=== PATIENT | female | born 1975 | race Caucasian/White ===

== ENCOUNTER → 2016-12-02 | Outpatient (CLI) | payer BC ==
[~2016-12-02] MED LIST: CEPH500C2 PO; INSPMPHMLG; LEVO75TA5 PO; NORGTAB39 PO; OXYC-57 PO; PRENTAB26 PO
== END | disposition home or self-care (01) ==
LOC: C.PAPS 12:15
PROVIDERS: ATTEND Obstetrics & Gynecology
DX: Z01.419 Encounter for gynecological examination (general) (routine) without abnormal findings (principal)

== ENCOUNTER → 2016-12-31 | Outpatient (CLI) | payer BC | END | disposition home or self-care (01) | LOC: C.LAB1850 16:19 | PROVIDERS: ATTEND Obstetrics & Gynecology | DX: F32.81 Premenstrual dysphoric disorder (principal) ==

== ENCOUNTER → 2017-01-01 | Outpatient (CLI) | payer BC | END | disposition home or self-care (01) | LOC: C.LAB1850 09:57 | PROVIDERS: ATTEND Obstetrics & Gynecology | DX: Z32.01 Encounter for pregnancy test, result positive (principal) ==

== ENCOUNTER → 2017-01-27 | Outpatient (CLI) | payer BC ==
[2017-01-27 09:55] LABS: ALT/SGPT 118 U/L (12-78); BLOOD UREA NITROGEN 13 mg/dl (7-18); BUN/CREATININE RATIO 21.7 (10-20); CALCIUM 9.1 mg/dl (8.5-10.1); CARBON DIOXIDE 26 mmol/L (21-32); CHLORIDE 104 mmol/L (98-107); GLUCOSE 154 mg/dl (70-99); POTASSIUM 4.2 mmol/L (3.5-5.1); SODIUM 139 mmol/L (136-145)
[2017-01-27 10:05] LABS: ALB/GLOB RATIO 1.3 (0.9-2); ALKALINE PHOSPHATASE 144 U/L (45-117); AST/SGOT 56 U/L (15-37); THYROID STIMULATING HORMONE 0.935 uIu/ml (0.300-4.500)
[2017-01-27 10:19] LABS: ESTIMATED AVERAGE GLUCOSE 174 mg/dl; HA1C FLAG Normal (Normal)
[2017-01-27 14:06] LABS: URINE APPEARANCE CLEAR (CLEAR); URINE BILIRUBIN NEG (NEG); URINE COLOR YELLOW; URINE NITRITE NEG (NEG); URINE PH 7.5 (4.5-7.5); URINE SPECIFIC GRAVITY 1.009 (1.000-1.030); UROBILINOGEN NEG (NEG)
[2017-01-27 14:13] LABS: MANUAL MICROSCOPIC REQUIRED? NO; REVIEW REQ? NO
== END | disposition home or self-care (01) ==
LOC: C.LAB1850 08:22
PROVIDERS: ATTEND Internal Medicine Endocrinology, Diabetes & Metabolism
DX: O09.519 Supervision of elderly primigravida, unspecified trimester (principal); E55.9 Vitamin D deficiency, unspecified; E10.29 Type 1 diabetes mellitus with other diabetic kidney complication

== ENCOUNTER → 2017-01-29 | Outpatient (CLI) | payer BC ==
[2017-01-29 17:11] LABS: BASO % 0.5 %; BASO ABS # 0.06 K/uL (0-0.2); COMPLETE YES; EOS % 1.2 %; HEMATOCRIT 40.3 % (37-47); IG% 0.5 %; LYMPH % 24.5 %; LYMPH ABS # 2.68 K/uL (1.2-3.4); MEAN CELL VOLUME 88.6 fL (80-100); MEAN CORPUSCULAR HEMOGLOBIN 32.3 pg (25-34); MEAN CORPUSCULAR HGB CONC 36.5 g/dl (32-36); MEAN PLATELET VOLUME 10.7 fL (7.4-10.4); MONO % 7.3 %; PLATELET COUNT 273 K/uL (130-400); RED BLOOD COUNT 4.55 M/uL (4.2-5.4); WHITE BLOOD COUNT 10.96 K/uL (4.8-10.8)
[2017-02-02 17:26] LABS: EBV EARLY ANTIGEN AB <0.91 INDEX; EPSTEIN BARR VIR CAPSID IGG 4.13 INDEX
== END | disposition home or self-care (01) ==
LOC: C.LABBFT 14:27
PROVIDERS: ATTEND Physician Assistant Medical
DX: R74.8 Abnormal levels of other serum enzymes (principal)

== ENCOUNTER → 2017-02-02 | Outpatient (CLI) | payer BC ==
[2017-02-05 01:35] LABS: CHLAMYDIA TRACH RNA*** NOT DETECTED (NOT DETECTED); GC (NEIS GONORRHOEAE)RNA** NOT DETECTED (NOT DETECTED)
== END | disposition home or self-care (01) ==
LOC: C.LABSPEC 17:59
PROVIDERS: ATTEND Obstetrics & Gynecology
DX: O09.519 Supervision of elderly primigravida, unspecified trimester (principal); Z3A.00 Weeks of gestation of pregnancy not specified

== ENCOUNTER → 2017-02-02 | Outpatient (CLI) | payer BC ==
[2017-02-02 17:42] LABS: BASO % 0.4 %; BASO ABS # 0.05 K/uL (0-0.2); COMPLETE YES; EOS % 1.2 %; HEMATOCRIT 38.1 % (37-47); IG% 0.6 %; LYMPH % 23.3 %; MEAN CELL VOLUME 87.6 fL (80-100); MEAN CORPUSCULAR HEMOGLOBIN 32.9 pg (25-34); MEAN CORPUSCULAR HGB CONC 37.5 g/dl (32-36); MEAN PLATELET VOLUME 11.1 fL (7.4-10.4); MONO % 7.6 %; NEUT % 66.9 %; PLATELET COUNT 244 K/uL (130-400); RED BLOOD COUNT 4.35 M/uL (4.2-5.4); WHITE BLOOD COUNT 11.61 K/uL (4.8-10.8)
== END | disposition home or self-care (01) ==
LOC: C.LAB1850 16:10
PROVIDERS: ATTEND Obstetrics & Gynecology
DX: O09.519 Supervision of elderly primigravida, unspecified trimester (principal); Z3A.00 Weeks of gestation of pregnancy not specified

== ENCOUNTER → 2017-02-11 | Outpatient (CLI) | payer BC ==
[2017-02-16 15:50] LABS: IGA SERUM 124 mg/dL (81-463); TIS TRANS IGA 1 U/mL (<4)
== END | disposition home or self-care (01) ==
LOC: C.LAB1850 15:46
PROVIDERS: ATTEND Nurse Practitioner Family
DX: O26.891 Other specified pregnancy related conditions, first trimester (principal); R74.8 Abnormal levels of other serum enzymes; Z3A.10 10 weeks gestation of pregnancy

== ENCOUNTER → 2017-02-15 | Outpatient (CLI) | payer BC ==
--- NOTE | 2017-02-15 10:03 | DIAGNOSTIC IMAGING REPORT ---
ABDOMINAL ULTRASOUND, RIGHT UPPER QUADRANT HISTORY: ELEVATED LIVER ENZYMES. COMPARISON: Abdominal ultrasound 12/12/2012. FINDINGS: Pancreas: The pancreas demonstrates a normal echotexture. Liver: Mildly enlarged measuring 20 cm in length. Normal echotexture. Gallbladder: No gallbladder wall thickening. No gallstones. There again noted 2 small polyps identified within largest measuring 4 mm. These remain unchanged. CBD: 3 mm. Right kidney: No hydronephrosis. IMPRESSION: 1. Mild hepatomegaly. 2. Stable subcentimeter gallbladder polyps. Electronically signed by: Jorden Saini M.D. 02/15/2017 10:01 AM Dictated Date/Time: 02/15/2017 10:00 AM
== END | disposition home or self-care (01) ==
LOC: C.ULTR 09:04
PROVIDERS: ATTEND Nurse Practitioner Family
DX: R74.8 Abnormal levels of other serum enzymes (principal); K82.4 Cholesterolosis of gallbladder; Z33.1 Pregnant state, incidental; Z3A.10 10 weeks gestation of pregnancy

== ENCOUNTER → 2017-02-17 | Outpatient (CLI) | payer BC ==
[2017-02-20 18:36] LABS: ALBUMIN 4.4 G/DL (3.8-4.8); ALPHA-1-ANTITRYPSIN TC 67710E 143 MG/DL (83-199); GAMMA GLOBULIN 0.8 G/DL (0.8-1.7); IMMUNOFIXATION IGA SERUM 121 MG/DL (81-463); IMMUNOFIXATION IGG SERUM 831 MG/DL (694-1618); IMMUNOFIXATION IGM SERUM 78 MG/DL (48-271); PARVOVIRUS IgG INDEX 0.2 (<0.9); PARVOVIRUS IgM INDEX 0.2 (<0.9); TOTAL PROTEIN 6.8 G/DL (6.2-8.3)
== END | disposition home or self-care (01) ==
LOC: C.LAB1850 13:44
PROVIDERS: ATTEND Nurse Practitioner Family
DX: R79.89 Other specified abnormal findings of blood chemistry (principal)

== ENCOUNTER → 2017-02-21 | Outpatient (CLI) | payer BC ==
[2017-02-22 15:56] LABS: PATIENT HEIGHT 162.6 cm
[2017-02-22 16:26] LABS: URINE TOTAL PROTEIN 6.9 mg/dl (0-11.9)
[2017-02-22 22:30] LABS: URINE TOTAL PROTEIN CALC 234.6 mg/24 hr (0-149.1)
[2017-02-22 22:31] LABS: CREATININE 0.66 mg/dl (0.6-1.2)
== END | disposition home or self-care (01) ==
LOC: C.LAB1850 20:00
PROVIDERS: ATTEND Obstetrics & Gynecology
DX: O24.011 Pre-existing type 1 diabetes mellitus, in pregnancy, first trimester (principal); E10.29 Type 1 diabetes mellitus with other diabetic kidney complication

== ENCOUNTER → 2017-03-02 | Outpatient (CLI) | payer BC ==
[2017-03-03 11:51] LABS: MANUAL MICROSCOPIC REQUIRED? YES; URINE APPEARANCE CLEAR (CLEAR); URINE BILIRUBIN NEG (NEG); URINE COLOR YELLOW; URINE NITRITE NEG (NEG); URINE SPECIFIC GRAVITY <= 1.005 (1.000-1.030); UROBILINOGEN NEG (NEG)
[2017-03-03 11:52] LABS: REVIEW REQ? NO
[2017-03-03 11:56] LABS: URINE BACTERIA NEG (NEG); URINE RBC 0-4 /hpf (0-4)
== END | disposition home or self-care (01) ==
LOC: C.LABSPEC 11:04
PROVIDERS: ATTEND Obstetrics & Gynecology
DX: O09.511 Supervision of elderly primigravida, first trimester (principal); Z3A.00 Weeks of gestation of pregnancy not specified

== ENCOUNTER → 2017-03-30 | Outpatient (CLI) | payer BC ==
[2017-04-01 14:55] LABS: AFP CONCENTRATION 25.8 NG/ML; AFP MULTIPLE OF MEDIAN 0.83; AFPTS GESTATIONAL AGE 16.9 WEEKS; AFPTS INSULIN DEP DIABETIC? YES; AFPTS MATERNAL WT 162 LBS; ALPHA-FETOPROTEIN RACE CAUCASIAN=W; HISTORY OF NTD NO; REPEAT SAMPLE? NO
== END | disposition home or self-care (01) ==
LOC: C.LAB1850 16:41
PROVIDERS: ATTEND Obstetrics & Gynecology
DX: O09.512 Supervision of elderly primigravida, second trimester (principal); Z3A.00 Weeks of gestation of pregnancy not specified

== ENCOUNTER → 2017-06-16 | Outpatient (CLI) | payer BC ==
[2017-06-16 13:09] LABS: HEMATOCRIT 37.8 % (37-47)
[2017-06-16 14:10] LABS: URINE APPEARANCE CLEAR (CLEAR); URINE BILIRUBIN NEG (NEG); URINE COLOR YELLOW; URINE NITRITE NEG (NEG); URINE PH 6.5 (4.5-7.5); URINE SPECIFIC GRAVITY 1.008 (1.000-1.030); UROBILINOGEN NEG (NEG)
[2017-06-16 14:18] LABS: MANUAL MICROSCOPIC REQUIRED? NO; REVIEW REQ? NO
== END | disposition home or self-care (01) ==
LOC: C.LAB1850 11:51
PROVIDERS: ATTEND Obstetrics & Gynecology
DX: O09.512 Supervision of elderly primigravida, second trimester (principal)

== ENCOUNTER 2017-08-06 18:14 | Outpatient (CLI) | payer BC ==
[~2017-08-06 18:14] MED LIST changes: -CEPH500C2 PO; -LEVO75TA5 PO; -OXYC-57 PO; -PRENTAB26 PO
== END 2017-08-06 18:15 | disposition home or self-care (01) ==
LOC: C.OPB 18:14 → C.LD 18:14 → C.OPB 18:15
PROVIDERS: ATTEND Obstetrics & Gynecology
DX: O24.019 Pre-existing type 1 diabetes mellitus, in pregnancy, unspecified trimester (principal); Z3A.00 Weeks of gestation of pregnancy not specified

== ENCOUNTER → 2017-08-09 | Outpatient (CLI) | payer BC ==
[~2017-08-09] MED LIST changes: +CEPH500C2 PO; +LEVO75TA5 PO; +OXYC-57 PO; +PRENTAB26 PO
== END | disposition home or self-care (01) ==
LOC: C.LABSPEC 09:33
PROVIDERS: ATTEND Obstetrics & Gynecology
DX: O09.93 Supervision of high risk pregnancy, unspecified, third trimester (principal)

== ENCOUNTER 2017-08-17 21:15 | Inpatient (IN) | payer BC ==
[~2017-08-17] VITALS: Ht 162.6 cm; Wt 85.5 kg
[~2017-08-17 21:15] MED LIST changes: -CEPH500C2 PO; -LEVO75TA5 PO; -OXYC-57 PO; -PRENTAB26 PO
[2017-08-17 21:31] VITALS: Ht 162.6 cm; Wt 85.5 kg
[2017-08-17] MEDS ORDERED: PRENTAB26 PO (21:31)
[2017-08-17] MEDS ORDERED: LEVO75TA5 PO (21:31)
[2017-08-17] MEDS ORDERED: DEXTROSE 5% 1000ML 1,000 ML IV SCH (22:17)
[2017-08-17] MEDS ORDERED: SODIUM CHLORIDE 0.9% 1000ML 1,000 ML IV SCH (22:17)
[2017-08-17] MEDS ORDERED: DEXTROSE 50% 50 ML SYR IV PRN (22:30)
[2017-08-17] MEDS ORDERED: INSULIN REGULAR 250 UNITS in SODIUM CHLORIDE 0.9% 250ML 250 ML IV SCH (22:30)
[2017-08-17 23:00] LABS: MEAN CELL VOLUME 87.6 fL (80-100); MEAN CORPUSCULAR HEMOGLOBIN 32.6 pg (25-34); MEAN CORPUSCULAR HGB CONC 37.2 g/dl (32-36); MEAN PLATELET VOLUME 12.3 fL (7.4-10.4); PLATELET COUNT 214 K/uL (130-400); RED BLOOD COUNT 4.45 M/uL (4.2-5.4); WHITE BLOOD COUNT 14.44 K/uL (4.8-10.8)
[2017-08-17 23:27] LABS: ALB/GLOB RATIO 0.7 (0.9-2); CALCIUM 8.6 mg/dl (8.5-10.1); CREATININE 0.91 mg/dl (0.60-1.20); POTASSIUM 3.9 mmol/L (3.5-5.1)
[2017-08-17] MEDS ORDERED: LACTATED RINGER'S 1000ML 1,000 ML IV PRN (23:38)
[2017-08-17] MEDS ORDERED: LACTATED RINGER'S 1000ML 500 ML IV PRN (23:39)
[2017-08-17] MEDS ORDERED: OXYTOCIN 30 UNITS/500ML NSS IV PRN (23:45)
[2017-08-18] MEDS: LACTATED RINGER'S 1000ML 1,000 ML IV SCH ×3 (00:29→13:55)
[2017-08-18] MEDS ORDERED: NURSING VERBAL MED ORDER ONE (02:30)
[2017-08-18] MEDS: BUTORPHANOL TARTRATE 1 MG/ML VIAL IV PRN ×2 (02:31→04:07)
[2017-08-18] MEDS ORDERED: FENTANYL CITRATE INJ 50 MCG/1 ML 2 ML VIAL ONE ×4 (05:12→18:24)
[2017-08-18] MEDS ORDERED: EpHEDrine SULFATE INJ 50 MG/ML AMP ONE (05:12)
[2017-08-18] MEDS ORDERED: FENTANYL 2MCG/ML ROPIV 1.25MG/ML 100ML BAG EPI ONE (05:12)
[2017-08-18] MEDS ORDERED: BUPIVACAINE 0.25% 30 ML VIAL ONE ×2 (05:12→14:11)
[2017-08-18] MEDS ORDERED: LACTATED RINGER'S 1000ML 500 ML IV PRN (05:13)
[2017-08-18] MEDS ORDERED: NALOXONE HCL INJ 1 MG in SODIUM CHLORIDE 0.9% 1000ML 1,000 ML IV PRN (05:13)
[2017-08-18] MEDS ORDERED: NALOXONE HCL INJ 0.4 MG/1 ML VIAL/CARP IV PRN (05:15)
[2017-08-18] MEDS ORDERED: ONDANSETRON INJ 2 MG/ML 2 ML VIAL IV PRN (05:15)
[2017-08-18] MEDS ORDERED: EpHEDrine SULFATE INJ 50 MG/ML AMP IV PRN ×2 (05:15→19:30)
[2017-08-18] MEDS ORDERED: DiphenhydrAMINE HCL 50 MG/ML VIAL IV PRN (05:15)
[2017-08-18] MEDS ORDERED: NALBUPHINE HCL INJ 10 MG/ML AMP IV PRN (05:15)
[2017-08-18] MEDS: FENTANYL 2MCG/ML ROPIV 1.25MG/ML 100ML BAG EPI PRN ×3 (07:07→13:37)
[2017-08-18] MEDS: INSULIN REGULAR 250 UNITS in SODIUM CHLORIDE 0.9% 250ML 250 ML IV SCH ×4 (11:34→14:40)
--- NOTE | 2017-08-18 14:28 | Anesthesiology Progress Note ---
Post OP Pain Management Date & Time of Service Aug 18, 2017 at 14:26 Subjective Therapies: Epidural/IV Drugs, Marcaine, Fentanyl pain is 10/10 Objective Cathether Site: examined, palpated, intact, dry, non-tender, without erythma, without exudate Assessment & Plan Plan: at 1424 pt epidural was bolused with 12 ml 0.17% bupivacaine + 100 mcgs Fentanyl ;negative aspiration;vital signs stable
[2017-08-18] MEDS ORDERED: CITRIC ACID/SODIUM CITRATE 15 ML UDC ONE (16:52)
[2017-08-18] MEDS ORDERED: LACTATED RINGER'S 1000ML 1,000 ML IV ONE (16:54)
[2017-08-18] MEDS ORDERED: CITRIC ACID/SODIUM CITRATE 15 ML UDC PO ONE (17:00)
[2017-08-18] MEDS ORDERED: MoRPHine SULFATE PF 1 MG/ML 10 ML AMP/VIAL ONE (17:25)
[2017-08-18] MEDS ORDERED: SODIUM CHLORIDE 0.9% 1000ML 1,000 ML IV SCH ×2 (18:22→20:04)
[2017-08-18] MEDS ORDERED: PROPOFOL IV EMULSION 10 MG/ML 20 ML VIAL IV ONE (18:23)
[2017-08-18] MEDS ORDERED: OXYTOCIN INJ 10 UNITS/ML VIAL ONE (18:23)
[2017-08-18] MEDS ORDERED: SUCCINYLCHOLINE CHLORIDE 20 MG/ML 10 ML VIAL IV ONE (18:23)
[2017-08-18] MEDS ORDERED: CARBOPROST TROMETHAMINE 250 MCG/ML AMP ONE (18:29)
[2017-08-18] MEDS ORDERED: NALOXONE HCL 0.4 MG/1 ML VIAL/CARP IV PRN (18:30)
[2017-08-18] MEDS ORDERED: SUPERCREAM 0.870 % 15GM JAR EXT PRN (18:30)
[2017-08-18] MEDS ORDERED: SENNA 8.6 MG TAB PO PRN (18:30)
[2017-08-18] MEDS ORDERED: MAGNESIUM HYDROXIDE SUSP 30 ML UDC PO PRN (18:30)
[2017-08-18] MEDS ORDERED: GLUCOSE 10 TABS/TUBE PO PRN (19:00)
[2017-08-18] MEDS ORDERED: DEXTROSE 50% 50 ML SYR IV PRN ×2 (19:00→20:15)
[2017-08-18] MEDS ORDERED: GLUCOSE 40% GEL 15 GM TUBE PO PRN (19:00)
[2017-08-18] MEDS ORDERED: INSULIN HUMAN LISPRO (humaLOG) 100 UNITS/ML VIAL SC PRN (19:00)
[2017-08-18] MEDS ORDERED: GLUCAGON FOR INJ 1 MG VIAL SQ PRN (19:00)
[2017-08-18] MEDS: OXYTOCIN INJ 20 UNITS in LACTATED RINGER'S 1000ML 1,000 ML IV SCH (19:14)
[2017-08-18] MEDS: HYDROmorphone HCL 0.5MG/ML 50 ML CASSETTE IV PRN ×2 (19:14→22:35)
--- NOTE | 2017-08-18 19:17 | Anesthesia Procedure Note ---
Anesthesia Epidural Removal Nt Date & Time Aug 18, 2017 at 19:16 Vital Signs Pain Intensity: 6.0 Notes Mental Status: alert / awake / arousable, participated in evaluation Nausea / Vomiting: adequately controlled Pain: adequately controlled Airway Patency, RR, SpO2: stable & adequate BP & HR: stable & adequate Hydration State: stable & adequate Neuraxial Anesthesia: was administered, sensory block is resolving Anesthetic Complications: no major complications apparent, pt satisfied with anesthetic care Epidural: removed without complications, with tip intact Notes: Catheter was noted to only be 1-3mm subQ on removal. Block was not working adequately by the time of removal. Suspect that it had withdrawn on patient repositioning during labor.
--- NOTE | 2017-08-18 19:22 | Anesthesiology Progress Note ---
Anesthesia Post Op Note Date & Time Aug 18, 2017 at 19:18 Vital Signs Pain Intensity: 6.0 Notes Mental Status: alert / awake / arousable, participated in evaluation Pt Amnestic to Procedure: Yes Nausea / Vomiting: adequately controlled Pain: adequately controlled Airway Patency, RR, SpO2: stable & adequate BP & HR: stable & adequate Hydration State: stable & adequate Neuraxial Anesthesia: was administered, sensory block is resolving Anesthetic Complications: no major complications apparent Sensory block not adequate for surgical anesthetic. The patient was placed seated for SAB placement and epidural catheter was removed. Spinal placement was not difficult with 24G sprotte and free flowing clear fluid was noted. However, after dosing, the patient did not get a sympathectomy or sensory level. We discussed general anesthesia and the patient agreed. GETA proceeded without incident and the patient was awaked without event.
[2017-08-18] MEDS ORDERED: ATROPINE SULFATE 0.1 MG/ML 5ML SYR IV PRN (19:30)
[2017-08-18] MEDS ORDERED: DEXTROSE 5% 1000ML 1,000 ML IV SCH (20:04)
[2017-08-19] VITALS: BP 156/70; PULSE 77; TEMP 36.3; O2SAT 98
[2017-08-19] MEDS: HYDROmorphone HCL 0.5MG/ML 50 ML CASSETTE IV PRN ×2 (00:22→07:15)
--- NOTE | 2017-08-19 00:38 | OPERATIVE REPORT ---
DATE OF OPERATION: 08/18/2017 PREOPERATIVE DIAGNOSES: 1. Cagle intrauterine at term. 2. Premature rupture of membranes. 3. Induction of labor with failure to progress. 4. Type 1 diabetes. 5. Hypertension. POSTOPERATIVE DIAGNOSES: Same. PROCEDURE: Primary low transverse section. SURGEON: Dr. Janine Tellez. ASSIST: Teresa Sebastian MD ESTIMATED BLOOD LOSS: 600. COMPLICATIONS: None. DISPOSITION: Stable in labor and delivery. DESCRIPTION: Liza was placed on the table in the supine position with a leftward tilt and prepped and draped in standard sterile fashion and a hard timeout was taken. The patient was established under general endotracheal anesthesia due to inadequate relief with regional. When she was comfortably asleep, a Pfannenstiel incision was created sharply and this was carried down to the fascia which was incised and then extended laterally using Cardenas scissors. The fascia was elevated and sharply and bluntly dissected off the rectus which were bluntly in the midline and the peritoneum was then entered bluntly. A bladder blade was placed. The bladder flap was created. Lower uterine segment was found to be well developed and a transverse lower uterine segment incision was then made with final entry to the uterus being made in a blunt manner and encountering clear fluid. The head was then elevated to the hysterotomy and delivered using mild fundal pressure. The infant was noted to have a loose nuchal cord which was reduced and then the body delivered through this. The was vigorous immediately upon delivery. The cord was doubly clamped, cut and then the infant was taken to the warmer. The placenta was manually extracted and intact with a 3-vessel cord. The uterus was then exteriorized and a small bit of residual membrane was then retrieved using Kira clamps. The interior of the uterus was curetted with a dry lap sponge and then the hysterotomy was repaired in the usual manner with 2 layers of 0 Vicryl suture. At the completion of repair, the hysterotomy appeared hemostatic and well approximated. The ovaries and tubes were examined and found to be normal and the uterus was reapproximated to the maternal abdomen. The lateral gutters were cleared of all clot and debris. On reexamination, a small approximately 1-2 cm hematoma was noted to be forming at the middle portion of the hysterotomy along with a small amount of oozing from this area of the hysterotomy. An 0 Vicryl [id number] suture was used over this area which was successful in both stopping the formation of hematoma and in stopping the oozing from the incision. Thus assured that complete hemostasis had been achieved, we decided to close the abdomen. The rectus was allowed to reapproximate naturally and the fascia was closed using 1-0 Vicryl in a running nonlocked manner. Subcutaneous tissue was copiously irrigated and then gently reapproximated using a 3-0 chromic and the skin was closed using 4-0 Monocryl and covered with a Dermabond dressing. The Byrd was noted to be draining clear yellow urine at the time the patient was transferred back to her recovery room in stable condition. I attest to the content of the Intraoperative Record and any orders documented therein. Any exception s are noted below.
[2017-08-19] MEDS ORDERED: ZOLPIDEM TARTRATE 5 MG TAB PO PRN (02:00)
[2017-08-19] MEDS ORDERED: PROMETHAZINE HCL INJ 25 MG in SODIUM CHLORIDE 0.9% 50ML 50 ML IV PRN (02:00)
[2017-08-19] MEDS ORDERED: OXYCODONE/ACETAMINOPHEN 5-325 TAB PO PRN (02:00)
[2017-08-19] MEDS ORDERED: MEPERIDINE HCL 50 MG/ML CARP IV PRN ×2 (02:00)
[2017-08-19] MEDS ORDERED: KETOROLAC TROMETHAMINE 30 MG/ML VIAL IV. PRN (02:00)
[2017-08-19] MEDS ORDERED: ONDANSETRON INJ 2 MG/ML 2 ML VIAL IV PRN (02:00)
[2017-08-19] MEDS ORDERED: DiphenhydrAMINE HCL 50 MG/ML VIAL IV PRN (02:00)
[2017-08-19] MEDS: OXYTOCIN INJ 20 UNITS in LACTATED RINGER'S 1000ML 1,000 ML IV SCH (02:10)
[2017-08-19] MEDS: SIMETHICONE 80 MG CHEW PO SCH ×5 (02:19→20:02)
[2017-08-19 04:10] VITALS: BP 155/80; PULSE 77; TEMP 36.7; O2SAT 100
[2017-08-19] MEDS ORDERED: CEFAZOLIN IV 3,000 MG in DEXTROSE 5% 50ML 50 ML IV SCH (06:00)
--- NOTE | 2017-08-19 06:52 | Progress Note ---
Subjective Aug 19, 2017. Subjective conversation w/ patient, physical exam, chart review, lab review Ambulation: limited ambulation Voiding: person catheter in place Passing Gas: No Diet Tolerance: Clear Liquids Lochia: Moderate Feeding Type: Breast Feeding Pain: controlled Review of Systems Respiratory: No shortness of breath Cardiac: No chest pain Abdomen: No nausea, No vomiting Female : No dysuria Objective Vital Signs Date Time Temp Pulse Resp B/P (MAP) Pulse Ox O2 Delivery O2 Flow Rate FiO2 08/19/17 04:10 36.7 77 18 155/80 (105) 100 Room Air 08/19/17 00:00 36.3 77 18 156/70 (98) 98 Room Air 08/19/17 00:00 98 Room Air 08/19/17 00:00 98 Room Air Physical Exam General Appearance: WELL-APPEARING, WD/WN, NO APPARENT DISTRESS Respiratory/Chest: lungs clear, normal breath sounds, no respiratory distress Cardiovascular: regular rate, rhythm, no gallop Abdomen: normal bowel sounds, soft Fundus: Firm, Tender (appropriately tender), Relation to Umbilicus (at level of U) Incision Description: Clean, Dry & Intact Extremities: no calf tenderness Laboratory Results Last 24 Hours Test 08/18/17 10:30 08/18/17 11:32 08/18/17 14:36 08/19/17 06:00 Bedside Glucose 121 mg/dl 122 mg/dl 104 mg/dl Assessment and Plan Post-Op Day#: 1 Continue Routine Care: - Vital Signs reviewed and WNL except for high blood pressure 155/80. Pt denies headache or palpitations. - Hgb pending (on admission was 14.5.) - Blood Type: O+, GBS - , Rubella Immune. - Pt is doing well clinically. - Monitor and Control pain with Motrin PRN, resume regular diet as tolerated, Monitor Lochia. - Encourage breast feeding. - Continue routine post op care. JAYDEN SUGGS PGY1 FM RESIDENT Resident Physician Supervision Note: I interviewed and examined the patient. Discussed with Dr. Suggs and agree with findings and plan as documented in the note. Any exceptions or clarifications are listed here: [None] Documented By: Janine Tellez Resident Tracking Resident Involvement: Resident Care Provided Care Provided: OB Delivery
[2017-08-19] MEDS: PRENATAL VITAMIN TAB PO SCH (07:47)
[2017-08-19] MEDS: LEVOTHYROXINE 75 MCG TAB PO SCH (07:47)
[2017-08-19] MEDS: DOCUSATE SODIUM 100 MG CAP PO SCH ×2 (07:47→20:02)
[2017-08-19] MEDS ORDERED: PHARMACY GLYCEMIC MGMT CONSULT PRN (07:55)
[2017-08-19] MEDS ORDERED: PRENATAL VITAMIN TAB PO SCH (08:00)
[2017-08-19 08:20] VITALS: BP 149/74; PULSE 85; TEMP 36.9
[2017-08-19 08:42] LABS: HEMATOCRIT 31.1 % (37-47)
--- NOTE | 2017-08-19 09:12 | Medical Consult ---
Consultation Date of Consultation: Aug 19, 2017. Attending Physician: Shruti Monge M.D.(SCHOOL PRINCIPAL/OB) Reason for Consultation: Medical management History of Present Illness This is a 41 yo F with PMHx of DM type I on insulin pump, diabetic retinopathy, hypothyroidism during , hx of elevated liver enzymes, gallbladder polyps on U/S of RUQ in 2011, anxiety. She is now s/p section on 08/18 to full term boy . She was seen and examined this morning. Her , and two other family members are visiting her at bedside. She feels very well, and is happy. She has no acute complaints currently. Pt reports some abdominal soreness but no pain. She was nauseated last evening and vomited x 1 at that time. Since then she has been tolerating clear liquid diet. No BM since delivery, pt is taking pain medication as needed, and is on a stool softener. Insulin infusion pump was restarted today and her glucose has been well controlled. Past Medical/Surgical History DM type I Hx of elevated liver enzymes Gallbladder polyp Anxiety HTN Hypothyroidism during Hx of tobacco use, smoker Surgical Hx: Elbow surgery Neuroplasty decompression median nerve at [place] Ovarian Cystectomy Family History No pertinent family history Social History Smoking Status: Former Smoker Smokeless Tobacco Use: No Drug Use: none Marital Status: single, in relationship Housing Status: lives alone Occupation Status: employed Allergies Coded Allergies: Metronidazole (Verified Allergy, Unknown, 08/17/17) Penicillins (Verified Allergy, Unknown, HIVES, 08/17/17) Current Inpatient Medications Current Inpatient Medications Medications (Trade) Dose Ordered Sig/Guille Route Start Time Stop Time Status Last Admin Dose Admin Sodium Chloride 1,000 ml @ 100 mls/hr Q10H IV 08/17/17 22:17 09/16/17 22:16 08/18/17 06:44 100 MLS/HR Dextrose (Dextrose 50% 50ML Syringe) 25-50mL of 50% DW IV ... UD PRN IV 08/17/17 22:30 09/16/17 22:29 Naloxone HCl (Narcan Inj) 0.1 mg Q5M PRN IV 08/18/17 18:30 08/19/17 12:00 Hydromorphone HCl (Dilaudid Stock House Worker) 25 mg PRN PRN IV 08/18/17 18:30 08/19/17 12:00 08/19/17 07:15 25 MG Sodium Chloride 1,000 ml @ 15 mls/hr Q24H IV 08/18/17 18:22 08/19/17 12:00 Levothyroxine Sodium (Synthroid Tab) 75 mcg DAILYBB PO 08/19/17 07:30 09/18/17 07:29 08/19/17 07:47 75 MCG Prenat Multivit/ [place]/Iron/Folic Ac ( Vitamin Tab) 1 tab DAILY PO 08/19/17 08:00 09/18/17 07:59 08/19/17 07:47 1 TAB Oxytocin 20 units/ Lactated Ringer's 1,002 ml @ 125 mls/hr Q8H1M IV 08/18/17 19:00 08/19/17 11:00 08/19/17 02:10 125 MLS/HR Ketorolac Tromethamine (Toradol Inj) 30 mg Q6H PRN IV. 08/19/17 02:00 08/24/17 01:59 Meperidine HCl (Demerol Inj) 50 mg Q4H PRN IV 08/19/17 02:00 09/02/17 01:59 Meperidine HCl (Demerol Inj) 75 mg Q4H PRN IV 08/19/17 02:00 09/02/17 01:59 Oxycodone/ Acetaminophen (Percocet 5-325mg Tab) 1 tab Q4H PRN PO 08/19/17 02:00 09/02/17 01:59 Oxycodone/ Acetaminophen (Percocet 5-325mg Tab) 2 tab Q4H PRN PO 08/19/17 02:00 09/02/17 01:59 Ibuprofen (Motrin Tab) 600 mg Q4H PRN PO 08/18/17 18:30 09/17/17 18:29 Promethazine HCl 25 mg/Sodium Chloride 51 ml @ 204 mls/hr Q4H PRN IV 08/19/17 02:00 09/18/17 01:59 Ondansetron HCl (Zofran Inj) 4 mg Q4H PRN IV 08/19/17 02:00 09/18/17 01:59 Bisacodyl (Dulcolax Tab) 5 mg HS ONCE PO 08/19/17 22:00 08/19/17 22:01 Docusate Sodium (coLACE CAP) 100 mg BID PO 08/18/17 20:00 09/17/17 19:59 08/19/17 07:47 100 MG Magnesium Hydroxide (Milk Of Magnesia Susp) 30 ml HS PRN PO 08/18/17 18:30 09/17/17 18:29 Cocaine HCl (Supercream 0.870% Cr) BID PRN EXT 08/18/17 18:30 09/01/17 18:29 Zolpidem Tartrate (Ambien Tab) 5 mg HSZ PRN PO 08/19/17 02:00 09/18/17 01:59 Simethicone (Mylicon Chew Tab) 80 mg QID PO 08/18/17 21:00 09/17/17 20:59 08/19/17 07:47 80 MG Diphenhydramine HCl (Benadryl Cap) 25 mg QID PRN PO 08/19/17 02:00 09/18/17 01:59 Diphenhydramine HCl (Benadryl Inj) 25 mg QID PRN IV 08/19/17 02:00 09/18/17 01:59 Senna (Senokot Tab) 17.2 mg HS PRN PO 08/18/17 18:30 09/17/17 18:29 Miscellaneous Information (Discontinue BLACKSMITH ASSISTANT) 1 ea TODAY@1200 N/A 08/19/17 12:00 08/19/17 12:01 Insulin Human Lispro (HumaLOG INSULIN PUMP) 1 ea ACHS N/A 08/18/17 22:00 09/17/17 21:59 08/19/17 07:30 1 EA Insulin Human Lispro (humaLOG) SLIDING SCALE PRN PRN SC 08/18/17 19:00 09/17/17 18:59 Glucose (Glucose 40% Gel) UD PRN PO 08/18/17 19:00 09/17/17 18:59 Glucose (Glucose Chew Tab) 1 tabs UD PRN PO 08/18/17 19:00 09/17/17 18:59 Glucagon (Glucagon Inj) 1 mg UD PRN SQ 08/18/17 19:00 09/17/17 18:59 Dextrose (Dextrose 50% 50ML Syringe) 50 ml UD PRN IV 08/18/17 19:00 09/17/17 18:59 Sodium Chloride 1,000 ml @ 100 mls/hr Q10H IV 08/18/17 20:04 09/17/17 20:03 Dextrose 1,000 ml @ 100 mls/hr Q10H IV 08/18/17 20:04 09/17/17 20:03 Insulin Human Regular 250 units/ Sodium Chloride 252.5 ml @ 0 mls/hr DAILY@1130 IV 08/19/17 11:30 09/18/17 11:29 Miscellaneous Information (Consult Glycemic Management Pharmacy) 1 ea UD PRN N/A 08/19/17 07:55 09/18/17 07:54 Review of Systems Constitutional: No fever, No chills, No sweats, No fatigue ENT: No hearing loss, No trouble swallowing Respiratory: No cough, No shortness of breath Cardiovascular: No chest pain, No palpitations Abdomen: + pain (see HPI), + nausea, + vomiting, No diarrhea, No constipation Musculoskeletal: + swelling (BLE), No joint pain Genitourinary - Female: No dysuria Neurologic: No numbness/tingling, No balance problems Psychiatric: + anxiety, No depression symptoms Integumentary: No rash, No itch Physical Exam Date Time Temp Pulse Resp B/P (MAP) Pulse Ox O2 Delivery O2 Flow Rate FiO2 08/19/17 04:10 36.7 77 18 155/80 (105) 100 Room Air 08/19/17 00:00 36.3 77 18 156/70 (98) 98 Room Air 08/19/17 00:00 98 Room Air 08/19/17 00:00 98 Room Air General Appearance: WD/WN, no apparent distress Head: normocephalic, atraumatic Eyes: PERRL, EOMI ENT: hearing grossly normal, pharynx normal Neck: supple, no JVD Respiratory/Chest: chest non-tender, lungs clear Cardiovascular: regular rate, rhythm Abdomen/GI: normal bowel sounds, soft, + tenderness (+ horizontal incision site s/p healing well without surrounding erythema or edema. ) Back: normal inspection Extremities/Musculoskelatal: normal inspection, no calf tenderness, + pedal edema (1+ BLE) Neurologic/Psych: alert, normal mood/affect, oriented x 3 Skin: normal color, warm/dry Laboratory Results Last 24 Hours Test 08/18/17 10:30 08/18/17 11:32 08/18/17 14:36 08/19/17 06:52 Bedside Glucose 121 mg/dl 122 mg/dl 104 mg/dl Hemoglobin 11.2 g/dL Hematocrit 31.1 % Assessment & Plan This is a 41 yo F with PMHx of DM type I on insulin pump, diabetic retinopathy, hypothyroidism during , hx of elevated liver enzymes, gallbladder polyps on U/S of RUQ in 2011, anxiety. Cagle intrauterine at term s/p C section on 08/18/17 - Encourage oral intake, ambulation and breast feeding - Analgesia with 1-2 tabs oxycodone 5/325 Q4H prn - Bowel regimen with colace Type 1 diabetes - Glycemic pharmacy consult placed while inpatient - Pt resumed insulin pump today and titrate off gtt. Glucose has been stable on accuchecks, follow.. - Oral intake of only clears due to nausea yesterday, advance as tolerated, antiemetics prn Hypertension - Bps running 150/90, appears to be stable at this time. Pt notes was higher with pain - Follow Qshift per nursing. - At this time no intervention for hypertension, if needed can consider hydralazine but suspected that this will improve over next 24 hours. Would ask for BP check within 1 week after d/c. Hypothyroidism during - Continue levothyroxine 75 mcg daily - primary team to follow and determine weaning off meds when appropriate. Anxiety - Mood is currently stable, good, no depressive sx - Not currently on SSRI, was previously on fluoxetine 20 mg daily and weaned off during . Follow up with PCP within 4 weeks for assessment and possible re-initiation of antidepressant if needed. - Can continue trazodone 50 mg QHS prn for sleep Hx of tobacco smoking - Continue to encourage cessation s/p delivery. DVT ppx: Teds, encourage ambulation CODE STATUS: FULL CODE Disposition: From home, dc per primary team Thank you for involving us for medical consultation, will sign off at this time. Please do not hesitate to call with questions or concerns. STEVE Physician Supervision Note: I interviewed and examined the patient. Discussed with Nina Kulkarni PAC and agree with findings and plan as documented in the note. 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 Her vital signs are stable with exception of slight hypertension She is in no distress awake alert appropriate Status post type I diabetic female continue insulin drip with self- management and glycemic pharmacy oversight Documented By: Piero Noonan
[2017-08-19] MEDS ORDERED: INSULIN REGULAR 250 UNITS in SODIUM CHLORIDE 0.9% 250ML 250 ML IV SCH (11:30)
[2017-08-19] MEDS ORDERED: DC PCA SCH (12:00)
[2017-08-19] MEDS: IBUPROFEN 600 MG TAB PO PRN ×3 (12:27→20:03)
[2017-08-19] MEDS: OXYCODONE/ACETAMINOPHEN 5-325 TAB PO PRN ×3 (12:28→20:02)
[2017-08-19 13:30] VITALS: BP 155/77; PULSE 74; TEMP 36.8
--- NOTE | 2017-08-19 14:50 | Pharmacy Progress Note ---
Glycemic Control Intl Consult Date of Service Aug 19, 2017. Scope Glycemic Pharmacist consulted by Dr Noonan on 08/19/17 for glycemic control and to write orders per [facility] inpatient glycemic control protocol Objective Weight (Kilograms): 85.500 Accuchecks BSG (last 24hrs): Test 08/18/17 14:36 08/18/17 15:31 08/18/17 16:56 08/18/17 19:05 Bedside Glucose 104 mg/dl (70-90) 102 mg/dl (70-90) 112 mg/dl (70-90) 139 mg/dl (70-90) Test 08/18/17 20:06 08/19/17 00:50 Bedside Glucose 123 mg/dl (70-90) 175 mg/dl (70-90) Recent Pertinent Medications Outpatient Anti-diabetic Regimen: * Humalog insulin pump * Goal range: 80 - 150 * Basal settings: - 0000 - 0300 = 0.75 units/hr - 0300 - 0700 = 0.65 units/hr - 0700 - 1900 = 0.55 units/hr - 1900 - 2359 = 0.85 units/hr * Correction factor: 50 * Carb ratio: 1 unit per 10 gram CHO (breakfast & lunch), 1 units per 12 g CHO (dinner) * A1c = 6.7 % 08/09/17 The patient is currently receiving: * Humalog insulin pump Assessment & Plan ASSESSMENT: * 41 yr old T1DM post female. * Patient was on IV insulin infusion during active labor and then transitioned to her Humalog insulin pump 9/20 pm after delivery. * Pt is to self-manage BSGs with insulin pump. * Current basal rate has been reduced 50% compared to usual to avoid hypoglycemia * I had discussion with patient and explained that reduced basal rates may be necessary for first 24-48 hours post labor * Pump has continuous glucose monitoring. Patient will slowly advance rate back to usual settings * Patient has required no correctional insulin and minimal carb coverage (4 units) * RN will have patient read and sign agreement [id number] Insulin Pump Therapy Patient Agreement. * RN will provide and explain form [id number] Flowsheet for Patient * Patient will document their insulin dose given on [id number] which is kept at the bedside, available to caregivers upon request, and which becomes part of the permanent medical record. If at any time the patients condition evidences that he/she is not able to manage the insulin pump (i.e. frequent hypo/hyperglycemia) Pharmacy will assume glycemic control by discontinuing the pump & managing with SQ basal bolus insulin regimen for the interim. PLAN FOR INPATIENT GLYCEMIC CONTROL: * Continue Humalog insulin pump * Please note that the plan above was derived based on current level of insulin resistance and hospital stress. These recommendations are appropriate for inpatient admission only. Plan of care upon discharge will need to be reassessed to avoid potential outpatient hypo/hyperglycemia. Thank you.
[2017-08-19 15:50] VITALS: BP 145/76; PULSE 76; TEMP 36.6; O2SAT 99
[2017-08-19] MEDS ORDERED: BISACODYL 5 MG TABEC PO ONE (22:00)
[2017-08-19 23:20] VITALS: BP 153/77; PULSE 76; TEMP 36.6; O2SAT 98
[2017-08-20] MEDS: IBUPROFEN 600 MG TAB PO PRN ×6 (00:03→21:10)
[2017-08-20] MEDS: OXYCODONE/ACETAMINOPHEN 5-325 TAB PO PRN ×6 (00:04→21:11)
[2017-08-20 06:27] LABS: BASO % 0.3 %; BASO ABS # 0.06 K/uL (0-0.2); COMPLETE YES; EOS % 0.6 %; HEMATOCRIT 28.3 % (37-47); IG% 1.9 %; LYMPH % 12.1 %; MEAN CELL VOLUME 87.9 fL (80-100); MEAN CORPUSCULAR HEMOGLOBIN 31.1 pg (25-34); MEAN CORPUSCULAR HGB CONC 35.3 g/dl (32-36); MEAN PLATELET VOLUME 11.3 fL (7.4-10.4); MONO % 7.4 %; NEUT % 77.7 %; PLATELET COUNT 204 K/uL (130-400); RED BLOOD COUNT 3.22 M/uL (4.2-5.4); WHITE BLOOD COUNT 19.07 K/uL (4.8-10.8)
[2017-08-20 07:15] VITALS: BP 145/72; PULSE 72; TEMP 36.9; O2SAT 98
[2017-08-20] MEDS: DOCUSATE SODIUM 100 MG CAP PO SCH ×2 (07:24→20:12)
[2017-08-20] MEDS: PRENATAL VITAMIN TAB PO SCH (07:24)
[2017-08-20] MEDS: SIMETHICONE 80 MG CHEW PO SCH ×4 (07:24→20:12)
[2017-08-20] MEDS: LEVOTHYROXINE 75 MCG TAB PO SCH (07:25)
--- NOTE | 2017-08-20 08:41 | Progress Note ---
Subjective Aug 20, 2017. Subjective conversation w/ patient, physical exam, chart review, lab review Ambulation: ambulating normally Voiding: no voiding problems Passing Gas: Yes Diet Tolerance: Regular Diet Lochia: Moderate Feeding Type: Breast Feeding Pain: controlled Review of Systems Respiratory: No shortness of breath Cardiac: No chest pain Abdomen: No nausea, No vomiting Female : No dysuria Objective Vital Signs Date Time Temp Pulse Resp B/P (MAP) Pulse Ox O2 Delivery O2 Flow Rate FiO2 08/20/17 07:15 98 Room Air 08/20/17 07:15 36.9 72 18 145/72 (96) 98 Room Air 08/19/17 23:20 36.6 76 18 153/77 (102) 98 Room Air 08/19/17 23:20 Room Air 08/19/17 15:50 99 Room Air 08/19/17 15:50 36.6 76 18 145/76 (99) 99 Room Air 08/19/17 13:30 36.8 74 18 155/77 (103) Room Air Physical Exam General Appearance: WELL-APPEARING, WD/WN, NO APPARENT DISTRESS Respiratory/Chest: lungs clear, normal breath sounds, no respiratory distress Cardiovascular: regular rate, rhythm, no gallop Abdomen: normal bowel sounds, soft Fundus: Firm, Non-Tender, Relation to Umbilicus (1 below U) Incision Description: Clean, Dry & Intact, Erythema (slight redness around incision. ), Ecchymosis (2 cm patch of ecchymosis inferior to incision. ) Extremities: no calf tenderness, + pedal edema (moderate) Laboratory Results Last 24 Hours Test 08/20/17 05:59 White Blood Count 19.07 K/uL Red Blood Count 3.22 M/uL Hemoglobin 10.0 g/dL Hematocrit 28.3 % Mean Corpuscular Volume 87.9 fL Mean Corpuscular Hemoglobin 31.1 pg Mean Corpuscular Hemoglobin Concent 35.3 g/dl Platelet Count 204 K/uL Mean Platelet Volume 11.3 fL Neutrophils (%) (Auto) 77.7 % Lymphocytes (%) (Auto) 12.1 % Monocytes (%) (Auto) 7.4 % Eosinophils (%) (Auto) 0.6 % Basophils (%) (Auto) 0.3 % Neutrophils # (Auto) 14.81 K/uL Lymphocytes # (Auto) 2.30 K/uL Monocytes # (Auto) 1.42 K/uL Eosinophils # (Auto) 0.11 K/uL Basophils # (Auto) 0.06 K/uL RDW Standard Deviation 42.3 fL RDW Coefficient of Variation 13.1 % Immature Granulocyte % (Auto) 1.9 % Immature Granulocyte # (Auto) 0.37 K/uL Assessment and Plan Post-Op Day#: 2 Continue Routine Care: - Vital Signs reviewed and WNL except for persistently moderately high blood pressures yesterday (max 155/80). This morning last reading 145/72. Pt denies headache or palpitations. - Hgb 10.0 (on admission was 14.5, POD1 was 11.2). Stable. - Blood Type: O+, GBS - , Rubella Immune. - Monitor and Control pain with Motrin PRN, resume regular diet as tolerated, Monitor Lochia. - Encourage breast feeding. - Pt doing well clinically, complains of leg swelling. Apprarently this is a chronic issue for which she has taken daily furosemide in the past. - Continue routine post op care. JAYDEN LAMB PGY1 FM RESIDENT Resident Tracking Resident Involvement: Resident Care Provided Care Provided: OB Delivery
[2017-08-20] MEDS: CEPHALEXIN MONOHYDRATE 500 MG CAP PO SCH ×4 (09:44→20:12)
--- NOTE | 2017-08-20 11:02 | Pharmacy Progress Note ---
Glycemic: Assessment & Plan Date of Service Aug 20, 2017. Assessment & Plan ASSESSMENT: * 41 yo post- Type 1 diabetic F * Pt currently self managing BSGs with home insulin Humalog Pump * Pt instructed by pharmacist yesterday to reduce basal settings by 50%, and monitory BSGs closely * If any changes are necessary, call pharmacy * BSGs have been well controlled, diet advanced from clears to regular last evening PLAN: * Continue home Humalog Pump * Continue reduced basal settings of 50% and monitory frequently BSGs continue to improve, no changes needed to inpatient regimen at this time. Pharmacy will continue to monitor patient daily and write orders per [facility] inpatient glycemic control protocol. Thanks. * Please note that the plan above was derived based on current level of insulin resistance and hospital stress. These recommendations are appropriate for inpatient admission only. Plan of care upon discharge will need to be reassessed to avoid potential outpatient hypo/hyperglycemia.
[2017-08-20 11:20] VITALS: BP 151/77
[2017-08-20 12:49] LABS: BASO % 0.2 %; BASO ABS # 0.05 K/uL (0-0.2); EOS % 0.6 %; HEMATOCRIT 29.6 % (37-47); IG% 2.1 %; LYMPH % 11.1 %; LYMPH ABS # 2.28 K/uL (1.2-3.4); MEAN CELL VOLUME 87.8 fL (80-100); MONO % 5.6 %; NEUT % 80.4 %; PLATELET COUNT 212 K/uL (130-400); RED BLOOD COUNT 3.37 M/uL (4.2-5.4); WHITE BLOOD COUNT 20.48 K/uL (4.8-10.8)
[2017-08-20 12:52] LABS: COMPLETE YES; MEAN CORPUSCULAR HGB CONC 36.5 g/dl (32-36)
[2017-08-20 13:07] LABS: CALCIUM 8.5 mg/dl (8.5-10.1); CREATININE 0.78 mg/dl (0.60-1.20); POTASSIUM 4.2 mmol/L (3.5-5.1)
[2017-08-20 13:10] LABS: ALB/GLOB RATIO 0.6 (0.9-2)
[2017-08-20 13:15] VITALS: BP 138/68
--- NOTE | 2017-08-20 15:31 | Discharge Instructions ---
Discharge Instructions Date of Service Aug 20, 2017. Admission Reason for Admission: Check [place] Discharge Discharge Diagnosis / Problem: DELIVERY Discharge Goals Goal(s): Routine recovery after Medications Continue Dispensed Medications: supercream, dermaplast, tucks, lansinoh Activity Recommendations Activity Limitations: per Instructions/Follow-up section . Instructions / Follow-Up Instructions / Follow-Up As discussed, due to moderately high blood pressures after delivery, please call the office at to schedule a follow up to check your blood pressure within 1 week from discharge. ACTIVITY RECOMMENDATIONS: * Gradual return to full activity over the next 2-3 weeks. * No lifting - nothing heavier than baby over the next 2-3 weeks. * Do not engage in vigorous exercise, sexual activity or sports until cleared by your physician. * Do not drive or operate any motorized equipment until cleared by your physician. * You may shower/bathe daily. MEDICATIONS: For discomfort or pain, you may use Acetaminophen (Tylenol), Ibuprofen (Advil), or Naproxen (Aleve) following the package directions. For constipation you may use Colace following the package directions. BREAST CARE: If you are not breast feeding: * Wear a supportive bra 24 hours a day for one to two weeks. * Avoid stimulating your breasts and nipples as much as possible during the first few weeks after delivery. * When taking a shower, have the warm water hit your back, not breasts. * When your breasts feel full, apply ice packs. Usually three to four times a day helps ease the discomfort. * Take a mild pain medication (Tylenol / Motrin) when you are uncomfortable. If breast feeding: * Use breast milk to lubricate nipples. Lansinoh cream may be used for sore nipples. You do not need to remove cream prior to breast feeding. If using a different brand of cream, check the label for directions regarding removal of cream prior to nursing. * Wear a supportive bra. * If having problems with breasts or breast feeding, call a building performance consultant or your health care provider. SPECIAL CARE INSTRUCTIONS: When you are discharged from the hospital, it is important for you to follow the instructions listed below: * During the first week at home, you should be able to care for yourself and your baby. In addition, the usual light household activities are encouraged. * Limit your activities to the way you feel. Do not try to clean the house or move furniture. Be sensible. * If you actively engage in sports and have done so up until the time of your delivery, you may resume these activities as soon as you feel able. This may take up to one month or even longer. Use good judgment. * Continue to take your vitamins for at least six weeks after the of your baby. * Your diet need not be limited unless you were on a special diet before your delivery. Breast-feeding mothers need around 2500 calories per day and at least 64-80 ounces of fluid per day (8 to 10 glasses). * You should eat foods from the four major food groups. Crash diets or fad diets are to be avoided. Eating lean meats, fresh fruits and vegetables, low-fat dairy products, high fiber foods and a regular exercise program, will help you get back to your pre- weight without putting your health at risk. * Constipation is sometimes a problem after delivery. Take a mild laxative as needed. If breast feeding, Milk of Magnesia is acceptable to use. You may use a suppository or Fleets enema. * A daily shower or tub bath is suggested. Wash incision daily with warm soapy water and pat dry. It doesn't need to be covered unless drainage is present. * A bloody vaginal discharge will usually continue until around four weeks . A small amount of bleeding may continue for as long as six weeks. Vaginal discharge changes from the bright red bleeding after delivery to pink then brownish and finally yellowish-pink before becoming white and disappearing. * Bleeding may increase with activity. Your first period may come in 4-8 weeks. If you are breast feeding, your period may be delayed even longer. * [place] (sex) can begin whenever both you and your partner feel comfortable and do not have any form of genital infection. It is recommended that you wait at least six weeks for internal and external healing to occur. If you have questions, please talk to your health care practitioner. A condom should be used to prevent infection and . * Foreplay, gentle intercourse and lubrication is very important the first several times to prevent pain. A water-based lubricant such as K-Y jelly or Astroglide may be used. * If you have RH negative blood and your baby is RH positive, you will receive RHOGAM by injection prior to discharge. The nurse will give you a card to keep with you that has the date and place that you received RHOGAM after delivery. * During your care, you had a Rubella screen done to check for the presence of rubella antibodies in your blood. If your test was negative, you will receive a Rubella vaccine prior to discharge. This vaccine may cause a fever, soreness at the injection site and flu-like symptoms. If these symptoms persist, notify your health care practitioner. is not advised for one month after a Rubella vaccine. * Verbalizes understanding of car seat law as reviewed with patient nursing. * Car Seat hand-out given and reviewed with patient by nursing. * Shaken baby information reviewed with patient by nursing. Call you doctor if: * Heavy bleeding (saturating several pads an hour) or passing clots the size of your fist. * A fever >101 degrees F (38.3 degrees C) on two occasions four hours apart and /or chills. * Unusual pain in the pelvic or vaginal areas. * Call the doctor for any increased redness, drainage or swelling around the incision and any pain unrelieved by prescribed pain medication. * "Baby Blues" lasting longer than two weeks. If you have any questions or concerns, call your health care practitioner at . FOLLOW UP VISIT: * Please call the office at to schedule a 6 week examination. It is important you keep this appointment. It is important for you to make arrangements for either yearly or twice yearly check-ups thereafter. Current Hospital Diet Patient's current hospital diet: Regular Diet Discharge Diet Recommended Diet: Regular Diet Procedures Procedures Performed: primary c/section Pending Studies Studies pending at discharge: no Laboratory Results Hemoglobin A1c Test 08/09/17 16:33 Range/Units Estimated Average Glucose 146 mg/dl Hemoglobin A1c 6.7 H 4.5-5.6 % Medical Emergencies . Who to Call and When: Medical Emergencies: If at any time you feel your situation is an emergency, please call 911 immediately. . Non-Emergent Contact Non-Emergency issues call your: Primary Care Provider . . "Provider Documentation" section prepared by Barby Suggs. . VTE Core Measure Inpt VTE Proph given/why not?: SCD's
[2017-08-20 16:30] VITALS: BP 155/69; PULSE 80; TEMP 36.8
[2017-08-20 20:05] VITALS: BP 149/75; PULSE 76; TEMP 36.7
[2017-08-20 23:35] VITALS: BP 150/75; PULSE 69; TEMP 36.7; O2SAT 98
[2017-08-21] MEDS: OXYCODONE/ACETAMINOPHEN 5-325 TAB PO PRN ×4 (06:26→22:31)
[2017-08-21] MEDS: IBUPROFEN 600 MG TAB PO PRN ×4 (06:28→22:32)
--- NOTE | 2017-08-21 08:11 | Progress Note ---
Subjective Aug 21, 2017. Subjective conversation w/ patient, physical exam, chart review, lab review Ambulation: ambulating normally Voiding: no voiding problems Passing Gas: Yes Diet Tolerance: Regular Diet Lochia: Moderate Feeding Type: Breast Feeding Pain: controlled Review of Systems Respiratory: No shortness of breath Cardiac: No chest pain Abdomen: No nausea, No vomiting Female : No dysuria Objective Vital Signs Date Time Temp Pulse Resp B/P (MAP) Pulse Ox O2 Delivery O2 Flow Rate FiO2 08/20/17 23:35 36.7 69 18 150/75 (100) 98 Room Air 08/20/17 23:35 Room Air 08/20/17 20:05 36.7 76 18 149/75 (99) Room Air 08/20/17 16:30 Room Air 08/20/17 16:30 36.8 80 18 155/69 (97) Room Air 08/20/17 13:15 138/68 (91) 08/20/17 11:20 151/77 (101) Physical Exam General Appearance: WELL-APPEARING, WD/WN, NO APPARENT DISTRESS Respiratory/Chest: lungs clear, normal breath sounds, no respiratory distress Cardiovascular: regular rate, rhythm, no gallop Abdomen: normal bowel sounds, soft Fundus: Firm, Non-Tender, Relation to Umbilicus (2 below U) Incision Description: Clean, Dry & Intact Extremities: no calf tenderness, + pedal edema (2+) Laboratory Results Last 24 Hours Test 08/20/17 12:31 White Blood Count 20.48 K/uL Red Blood Count 3.37 M/uL Hemoglobin 10.8 g/dL Hematocrit 29.6 % Mean Corpuscular Volume 87.8 fL Mean Corpuscular Hemoglobin 32.0 pg Mean Corpuscular Hemoglobin Concent 36.5 g/dl Platelet Count 212 K/uL Mean Platelet Volume 11.0 fL Neutrophils (%) (Auto) 80.4 % Lymphocytes (%) (Auto) 11.1 % Monocytes (%) (Auto) 5.6 % Eosinophils (%) (Auto) 0.6 % Basophils (%) (Auto) 0.2 % Neutrophils # (Auto) 16.46 K/uL Lymphocytes # (Auto) 2.28 K/uL Monocytes # (Auto) 1.14 K/uL Eosinophils # (Auto) 0.13 K/uL Basophils # (Auto) 0.05 K/uL RDW Standard Deviation 42.4 fL RDW Coefficient of Variation 13.2 % Immature Granulocyte % (Auto) 2.1 % Immature Granulocyte # (Auto) 0.42 K/uL Sodium Level 142 mmol/L Potassium Level 4.2 mmol/L Chloride Level 108 mmol/L Carbon Dioxide Level 29 mmol/L Anion Gap 5.0 mmol/L Blood Urea Nitrogen 12 mg/dl Creatinine 0.78 mg/dl Est Creatinine Clear Calc Drug Dose 100.5 ml/min Estimated GFR () 109.4 Estimated GFR (Non- 94.4 BUN/Creatinine Ratio 15.0 Random Glucose 126 mg/dl Calcium Level 8.5 mg/dl Total Bilirubin 0.3 mg/dl Aspartate Amino Transf (AST/SGOT) 33 U/L Alanine Aminotransferase (ALT/SGPT) 28 U/L Alkaline Phosphatase 207 U/L Total Protein 5.7 gm/dl Albumin 2.2 gm/dl Globulin 3.5 gm/dl Albumin/Globulin Ratio 0.6 Assessment and Plan Post-Op Day#: 3 Continue Routine Care: - Vital Signs reviewed and WNL except for persistently moderately high blood pressures yesterday (max 155/69). Last reading 150/75. Pt denies headache or palpitations. Pt will schedule follow up in 1 week for blood pressure check in office. Pt understands this and agrees. - Hgb 10.8 (on admission was 14.5, POD1 was 11.2, POD 2 10.0). Stable. - Blood Type: O+, GBS - , Rubella Immune. - Monitor and Control pain with Motrin PRN, resume regular diet as tolerated, Monitor Lochia. - Encourage breast feeding. - Pt doing well clinically, complains of leg swelling. Apprarently this is a chronic issue for which she has taken daily furosemide in the past. - Continue routine post op care. Baby is on antibiotics till tonight, so likely discharge tomorrow. Have written Keflex script for home (7 day course total - is in chart.) JAYDEN SUGGS PGY1 FM RESIDENT Resident Physician Supervision Note: I was present with Dr. Suggs during the history and exam. I discussed the case with the resident and agree with the findings and plan as documented in the note. Any exceptions or clarifications are listed here: POD#3 doing well, BPs 140-150s/70s. Was started on keflex for concerns of cellulitis - incision looks C/D/I, no appearance of infection at this time. Baby will be staying until tomorrow. Documented By: Melisa Nelson Resident Tracking Resident Involvement: Resident Care Provided Care Provided: OB Delivery
[2017-08-21] MEDS: LEVOTHYROXINE 75 MCG TAB PO SCH (08:21)
[2017-08-21] MEDS: PRENATAL VITAMIN TAB PO SCH (08:21)
[2017-08-21] MEDS: SIMETHICONE 80 MG CHEW PO SCH ×4 (08:21→20:35)
[2017-08-21] MEDS: DOCUSATE SODIUM 100 MG CAP PO SCH ×2 (08:21→20:39)
[2017-08-21] MEDS: CEPHALEXIN MONOHYDRATE 500 MG CAP PO SCH ×4 (08:21→20:36)
[2017-08-21] MEDS ORDERED: CEPH500C2 PO (08:33)
[2017-08-21 09:20] VITALS: O2SAT 97
[2017-08-21 09:35] VITALS: BP 142/77; PULSE 75; TEMP 36.7; O2SAT 97
[2017-08-21 17:39] VITALS: BP 163/71; PULSE 78; TEMP 36.7; O2SAT 97
[2017-08-21 23:30] VITALS: BP 152/81; PULSE 79; TEMP 36.7; O2SAT 96
[2017-08-22] MEDS: IBUPROFEN 600 MG TAB PO PRN ×4 (05:09→20:33)
[2017-08-22] MEDS: OXYCODONE/ACETAMINOPHEN 5-325 TAB PO PRN ×4 (05:09→20:35)
[2017-08-22] MEDS: DOCUSATE SODIUM 100 MG CAP PO SCH ×2 (07:43→20:33)
[2017-08-22] MEDS: SIMETHICONE 80 MG CHEW PO SCH ×4 (07:43→20:34)
[2017-08-22] MEDS: PRENATAL VITAMIN TAB PO SCH (07:43)
[2017-08-22] MEDS: CEPHALEXIN MONOHYDRATE 500 MG CAP PO SCH ×4 (07:43→20:33)
[2017-08-22] MEDS: LEVOTHYROXINE 75 MCG TAB PO SCH (07:44)
[2017-08-22 07:50] VITALS: BP 149/79; PULSE 69; TEMP 36.6; O2SAT 98
--- NOTE | 2017-08-22 09:25 | Progress Note ---
Subjective Aug 22, 2017. Subjective conversation w/ patient, physical exam, lab review Ambulation: ambulating normally Voiding: no voiding problems Passing Gas: Yes Diet Tolerance: Regular Diet Lochia: Small Feeding Type: Breast Feeding Pain: controlled with oral pain meds Comment: Patient had some significant leaking of serosanguinous fluid from her incision yesterday afternoon. Has decreased today. Pressures a bit elevated today but patient had no s/s of pet. Objective Vital Signs Date Time Temp Pulse Resp B/P (MAP) Pulse Ox O2 Delivery O2 Flow Rate FiO2 08/21/17 23:30 36.7 79 18 152/81 (104) 96 Room Air 08/21/17 23:30 Room Air 08/21/17 17:39 36.7 78 15 163/71 (101) 97 Room Air 08/21/17 17:00 Room Air 08/21/17 09:35 36.7 75 14 142/77 (98) 97 Room Air Physical Exam General Appearance: WELL-APPEARING, WD/WN, NO APPARENT DISTRESS Respiratory/Chest: lungs clear, normal breath sounds Cardiovascular: regular rate, rhythm Abdomen: normal bowel sounds, non tender, soft Fundus: Firm, Non-Tender, Relation to Umbilicus (1 below u) Incision Description: Clean, Dry & Intact, Ecchymosis Extremities: non-tender, normal inspection, + pedal edema (+1) Assessment and Plan Post-, Post-Op Day#: 4 Continue Routine Care: Plan d/c to nesting today. Needs blood pressure and incision check in the office in about one week--Wednesday. Instructions given.
[2017-08-22] MEDS ORDERED: OXYC-57 PO (09:26)
[2017-08-22 15:00] VITALS: BP 156/77; PULSE 85; TEMP 36.7; O2SAT 98
[2017-08-22 21:50] VITALS: BP_DIAS 77; PULSE 85; TEMP 36.7
--- NOTE | 2017-08-25 08:53 | Discharge Summary ---
Discharge Summary Date of Service Aug 25, 2017. Discharge Summary Admission Date: Aug 17, 2017 at 21:15 Discharge Date: Aug 22, 2017 Discharge Disposition: Home Principal Diagnosis: Primary section for FTP Immunizations: History of Tetanus Vaccine?: Unknown History of Pneumococcal: Unknown History of Hepatitis B Vaccine: Unknown Medication Reconciliation New Medications: Cephalexin Monohydrate (Keflex) 500 Mg Cap 500 MG PO QID for 5 Days, #20 CAP Oxycodone/Acetaminophen 5MG/325MG (Percocet 5MG/325MG) Tab 1 TABLET PO Q4H PRN for Pain, #20 TAB Continued Medications: Insulin Human Lispro (Insulin Humalog Pump ) Pump 1 EA N/A UD, EA Levothyroxine Sodium (Levothyroxine Sodium) 75 Mcg Tab 1 TAB PO DAILY for 30 Days, #30 TAB 5 Refills Multivit/Min/Iron/Fol Ac/Pren ( Vitamin) Tab 1 TAB PO DAILY, TAB Hospital Course Total Time Spent: Less than 30 minutes This includes examination of the patient, discharge planning, medication reconciliation, and communication with other providers. Discharge Instructions Please refer to the electronic Patient Visit Report (Discharge Instructions) for additional information.
== END 2017-08-22 20:50 | disposition home or self-care (01) | DRG 765 ==
LOC: C.LD 21:15 → C.OBG 08-19 00:05
PROVIDERS: ADMIT Obstetrics & Gynecology; ATTEND Obstetrics & Gynecology
PROC: 10D00Z1 Extraction of Products of Conception, Low, Open Approach (ICD-10-PCS; principal; 2017-08-18 16:55)
DX: O42.013 Preterm premature rupture of membranes, onset of labor within 24 hours of rupture, third trimester (principal); O24.02 Pre-existing type 1 diabetes mellitus, in childbirth; O63.9 Long labor, unspecified; O69.81X0 Labor and delivery complicated by cord around neck, without compression, not applicable or unspecified; O99.284 Endocrine, nutritional and metabolic diseases complicating childbirth; E03.9 Hypothyroidism, unspecified; E10.319 Type 1 diabetes mellitus with unspecified diabetic retinopathy without macular edema; O99.344 Other mental disorders complicating childbirth; F41.9 Anxiety disorder, unspecified; Z3A.36 36 weeks gestation of pregnancy; Z37.0 Single live birth; O09.513 Supervision of elderly primigravida, third trimester; Z88.0 Allergy status to penicillin; Z88.1 Allergy status to other antibiotic agents; Z87.891 Personal history of nicotine dependence; O16.4 Unspecified maternal hypertension, complicating childbirth

== ENCOUNTER → 2017-11-10 | Outpatient (CLI) | payer BC ==
[~2017-11-10] MED LIST changes: +LEVO75TA5 PO; -NORGTAB39 PO; +OXYC-57 PO; +PRENTAB26 PO
[2017-11-10 13:51] LABS: PREG INTERNAL POSITIVE QC POS CONTROL LINE
[2017-11-10 13:52] LABS: PREG INTERNAL NEGATIVE QC NEG CLEAR BACKGROUND
[2017-11-10 15:10] LABS: THYROID STIMULATING HORMONE 0.008 uIu/ml (0.300-4.500)
[2017-11-11 07:02] LABS: ESTIMATED AVERAGE GLUCOSE 183 mg/dl; HA1C FLAG Normal (Normal)
[2017-11-13 01:49] LABS: CHLAMYDIA TRACH RNA*** NOT DETECTED (NOT DETECTED); GC (NEIS GONORRHOEAE)RNA** NOT DETECTED (NOT DETECTED)
== END | disposition home or self-care (01) ==
LOC: C.LAB 13:09
PROVIDERS: ATTEND Physician Assistant
DX: Z30.430 Encounter for insertion of intrauterine contraceptive device (principal); Z30.9 Encounter for contraceptive management, unspecified; O24.013 Pre-existing type 1 diabetes mellitus, in pregnancy, third trimester; O99.283 Endocrine, nutritional and metabolic diseases complicating pregnancy, third trimester

== ENCOUNTER → 2017-12-06 | Outpatient (CLI) | payer OTHER ==
[2017-12-06 18:15] LABS: BLOOD UREA NITROGEN 17 mg/dl (7-18); CREATININE 1.08 mg/dl (0.60-1.20)
--- NOTE | 2017-12-07 12:28 | CODING QUERY NO DIAGNOSIS ---
TREATMENT RENDERED WITHOUT A DIAGNOSIS 75 To promote full compliance with coding requirements relating to patient care, physician participation is requested in all cases of gate keeper uncertainty. Please assist us with providing a diagnosis/symptom for the test(s) below: A diagnosis/symptom was not documented on your Order. A valid diagnosis/symptom is required to bill all insurances. Please remember that we are unable to code a diagnosis of rule out, probable, possible, questionable, or suspected. DOS 12/06/17 Tests that require a diagnosis: * BLOOD UREA NITROGEN DIAGNOSIS: * CREATININE DIAGNOSIS: * T4 FREE DIAGNOSIS: * TSH DIAGNOSIS: *ON YOUR ORDER YOU HAVE DX CODE E08.359, THAT IS AN INVALID CODE, PLEASE ADD CORRECT DX CODE Provider Signature: Date: Thank you Jyoti [facility] Information Management Once completed, please kindly fax back to [phone] For questions please call [phone]
== END | disposition home or self-care (01) ==
LOC: C.LAB1850 17:08
PROVIDERS: ATTEND Ophthalmology
DX: H49.21 Sixth [abducent] nerve palsy, right eye (principal)

== ENCOUNTER → 2017-12-09 | Outpatient (CLI) | payer OTHER ==
[~2017-12-09] MED LIST changes: +GADAVIST IV PRN
--- NOTE | 2017-12-09 12:20 | DIAGNOSTIC IMAGING REPORT ---
MRI OF THE BRAIN WITHOUT AND WITH IV CONTRAST CLINICAL HISTORY: RT SIXTH NERVE PALSY HEADACHES. DOUBLE VISION. COMPARISON STUDY: No previous studies for comparison. TECHNIQUE: MRI of the brain was performed from the vertex to the skull base utilizing various T1 and T2 weighted sequences. Following the IV administration of 6.5 mL of Gadavist contrast, additional enhanced images were obtained. FINDINGS: Sagittal T1, axial diffusion, proton density and T2 weighted axial, coronal FLAIR, and pre and post axial T1-weighted images were acquired. These were supplemented with post gadolinium coronal T1 weighted images. No intra or extra-axial mass lesions are visualized. Axial diffusion-weighted images reveal no evidence of acute or subacute infarction. There is no evidence of ventricular dilatation. Proton density T2-weighted and FLAIR images reveal no significant brachial signal abnormalities. There are no abnormal flow voids. There is no evidence of pathologic enhancement. IMPRESSION: Normal MRI of the brain. Electronically signed by: Corby Christine M.D. 12/09/2017 12:19 PM Dictated Date/Time: 12/09/2017 12:17 PM
== END | disposition home or self-care (01) ==
LOC: C.MRIBC 11:04
PROVIDERS: ATTEND Ophthalmology
DX: H49.21 Sixth [abducent] nerve palsy, right eye (principal)

== ENCOUNTER → 2017-12-21 | Outpatient (CLI) | payer OTHER ==
[~2017-12-21] MED LIST changes: -GADAVIST IV PRN
== END | disposition home or self-care (01) ==
LOC: C.PAPS 10:00
PROVIDERS: ATTEND Physician Assistant
DX: Z01.419 Encounter for gynecological examination (general) (routine) without abnormal findings (principal)

== ENCOUNTER → 2018-01-03 | Outpatient (CLI) | payer OTHER ==
[2018-01-03 17:15] LABS: HEMATOCRIT 39.1 % (37-47); HEMOGLOBIN 14.4 g/dL (12.0-16.0); MEAN CELL VOLUME 87.3 fL (80-100); MEAN CORPUSCULAR HEMOGLOBIN 32.1 pg (25-34); MEAN CORPUSCULAR HGB CONC 36.8 g/dl (32-36); MEAN PLATELET VOLUME 10.7 fL (7.4-10.4); PLATELET COUNT 324 K/uL (130-400); RED CELL DISTRIBUTION WIDTH CV 13.6 % (11.5-14.5); RED CELL DISTRIBUTION WIDTH SD 43.1 fL (36.4-46.3); WHITE BLOOD COUNT 10.93 K/uL (4.8-10.8)
[2018-01-03 17:47] LABS: ALBUMIN 4.1 gm/dl (3.4-5.0); ALT/SGPT 42 U/L (12-78); AST/SGOT 22 U/L (15-37); BLOOD UREA NITROGEN 18 mg/dl (7-18); CALCIUM 9.3 mg/dl (8.5-10.1); CARBON DIOXIDE 29 mmol/L (21-32); CHOLESTEROL 228 mg/dl (0-200); CREATININE 1.34 mg/dl (0.60-1.20); GLUCOSE 131 mg/dl (70-99); SODIUM 138 mmol/L (136-145)
[2018-01-03 17:57] LABS: ALKALINE PHOSPHATASE 101 U/L (45-117); LDL CHOLESTEROL CALCULATED 128 mg/dl; TOTAL PROTEIN 7.8 gm/dl (6.4-8.2)
== END | disposition home or self-care (01) ==
LOC: C.LAB1850 16:43
PROVIDERS: ATTEND Physician Assistant Medical
DX: O99.280 Endocrine, nutritional and metabolic diseases complicating pregnancy, unspecified trimester (principal)

== ENCOUNTER 2024-10-06 11:25 | Inpatient (IN) ==
--- NOTE | 2024-10-06 11:47 | Emergency Department Note ---
Impression & Plan Acute pyelitis, Pyelonephritis, Cystitis, Bacteremia ED Provider Note NAME: INDIA KURTZ AGE: 48 SEX: F : 1975 ARRIVES VIA: Walk-In INFORMANT: Patient, ED PROVIDER(S): Rosmery Monge MD CHIEF COMPLAINT: Fever, chills HPI: This is a 48-year-old female presenting for fever and chills. Patient was that on Wednesday she began having a headache. This progressed to body ache and chills. Patient still having the body aches that are fairly severe. She notes she is a type I diabetic and noted some ketones in her urine as well as elevated blood sugar in the 200s. She reports fevers at home as well. She reports no nausea or vomiting. Does currently endorse some suprapubic abdominal pain as well as going to bilateral flanks. ROS: See above HPI for pertinent positives & negatives. A total of 10 systems reviewed and were otherwise negative. PAST MEDICAL HISTORY: See Below PAST SURGICAL HISTORY: See Below FAMILY HISTORY: See Below SOCIAL HISTORY: See Below HOME MEDICATIONS: See Below ALLERGIES: See Below VITALS: See Below PHYSICAL EXAMINATION: General: resting comfortably in no acute distress Head: Normocephalic and atraumatic Eyes: Normal inspection, extraocular muscles intact Ear, nose, throat: Normal external exam Neck: Normal range of motion Respiratory: lungs clear to auscultation bilaterally Cardiovascular: Regular rate/rhythm, no murmur GI: Suprapubic abdominal tenderness Extremities: nontender, moves all extremities Neuro: The patient awake and alert, appropriately conversive, no focal deficits, symmetric faces Skin: Warm, dry, and intact MEDICAL DECISION MAKING: This is a 48-year-old female sent for fever and chills per patient is to be having headache, now body aches without upper respiratory symptoms including congestion, sore throat, cough. She notes shaking chills. -Patient significant febrile here at 39.1.Otherwise no significant tachycardia or hypotension to suggest septic shock. -Patient's urinalysis is positive at this time for UTI -Patient also has a significant white count of 28 -Patient CT imaging was ordered due to her suprapubic abdominal tenderness and flank pain -Blood cultures ordered due to negative respiratory panel, kidney fever, chills, rigors. Concern for bacteremia -CT imaging reveals bilateral pyelitis, pyelonephritis and cystitis. -Patient without the patient has a significant fever, chills and rigors, with her CAT scan findings, patient will require admission at this time. Will give IV ceftriaxone. Discussed care with Dr. Welch and MARSHA Weinberg PA-C for admission Differential diagnosis: Upper respiratory infection, UTI, pyelonephritis, bacteremia ER treatment provided: See below Independent History obtained from: Diagnostics interpreted by me: ECG: None Cardiac Monitoring: An order was placed for continuous cardiac monitoring. The monitor shows a rate of 71 with sinus rhythm. Laboratory studies: As stated above and show below. Imaging studies: See below. Past Med/Surg History Problem List (Updated 10/06/24 @ 18:10 by Rosmery Monge MD) Bacteremia (Acute) Cystitis (Acute) Pyelonephritis (Acute) Acute pyelitis (Acute) Insulin pump in place Fever Cystitis Pyelonephritis Chronic migraine without aura Gastroenteritis (Acute) Type 1 diabetes mellitus Hyperlipidemia Type 1 diabetes mellitus with diabetic neuropathy Paresthesias Proliferative retinopathy Fatigue Vitamin D deficiency Eosinopenia Pineal gland cyst Unrefreshed by sleep Vulvitis Medical History (Updated 10/06/24 @ 18:10 by Rosmery Monge MD) Arthritis Diabetic retinopathy Migraine History of COVID-19 X 2 (LAST EPISODE 05/2022) RESOLVED Diabetes mellitus type 1 History of depression Surgical History History of orthopedic surgery Left first dorsal compartment release History of colonoscopy [place] teeth removed H/O eye surgery LASER PROCEDURE FOR DIABETIC RETINOPATHY RT/LEFT S/P trigger finger release LEFT/RIGHT S/P tendon repair ECU tendon repair (right) History of carpal tunnel release bilateral S/P cubital tunnel release bilateral History of laparoscopy with ovarian cystectomy History of section X 1 Family History Mother Dyslipidemia Grandmother (Maternal) Breast cancer Grandmother (Paternal) Breast cancer Other No family history of adverse response to anesthesia No pertinent family history Denies family history of Ovarian cancer Prostate cancer Myocardial infarction Colorectal cancer Social History Smoking Status: Never smoker Second Hand Exposure: No; Do You Dip or Chew Tobacco: No; Hx Alcohol Use: Yes Alcohol type: beer and wine Alcohol Intake Frequency: Monthly or Less Hx Substance Use: No Preferred Language: [place] Communication Ability: Effective Visual Impairment: No Limitations Hearing Ability: Normal Train Clerk Required: No Beliefs That Will Affect Care: None marital status: Current Living Situation: Spouse and Family Current Living Situation Comment: AND SON current occupational status: employed How many Children do You have: 1 Feels Safe at Home: Yes Childhood Exposure to Second-Hand Smoke: No Diet: regular Dental Care, Regularly: Yes Physical Activity Frequency: 3-4 Times per Week Seatbelt Use: always Sunscreen Use: Yes Assistive Devices: Contacts and Glasses Allergies Allergies Allergy/AdvReac Type Severity Reaction Status Date / Time metronidazole Allergy Intermediate Hives Verified 10/04/24 07:56 Penicillins Allergy Intermediate HIVES Verified 10/04/24 07:56 Home Meds Home Medications Medication Instructions Recorded Confirmed glucagon (human recombinant) 1 mg 1 mg IM DIRECTED PRN 08/15/19 10/06/24 solution for injection (Glucagon Hypoglycemia Emergency Kit) levonorgestrel 21 mcg/24 hr (up to 1 ea intrauterine ONCE 08/15/19 10/06/24 8 years) 52 mg intrauterine device blood sugar diagnostic (FreeStyle #10 ea 04/04/21 08/07/24 Test strips) cholecalciferol (vitamin D3) 25 25 mcg PO QAM 09/30/21 10/06/24 mcg/drop (1,000 unit/drop) oral drops vitamin B complex 1 tab PO DAILY 09/30/21 10/06/24 magnesium oxide 400 mg PO DAILY 07/28/22 10/06/24 riboflavin (vitamin B2) 400 mg 400 mg PO DAILY 07/28/22 10/06/24 tablet ferrous sulfate 1 tab PO DAILY 04/21/24 10/06/24 topiramate 100 mg tablet 50 mg PO BID 10/04/24 10/06/24 Previous Rx's Medication Instructions Recorded Omnipod 5 G6 Intro Kit (Gen 5) #1 ea 10/02/22 subcutaneous cartridge with controller (insulin pump cart,auto,BT-cntr) oeooviatoo-wzqpcdaezsqzc-bkbruwzp 1 cap PO DAILY PRN pain #10 caps 01/26/23 50 mg-300 mg-40 mg capsule (Fioricet) digital therapeutic,JESSICA device #1 ea 07/01/23 fluticasone propionate 50 1 spray intranasal BID #16 grams 08/18/23 mcg/actuation nasal spray,suspension Omnipod 5 G6 Pods (Gen 5) (insulin #30 ea 11/04/23 pump cart,automated,BT) fluoxetine 20 mg capsule 20 mg PO QAM #90 caps 11/08/23 pravastatin 20 mg tablet 20 mg PO DAILY 90 days #90 tabs 12/28/23 insulin glargine-yfgn 100 unit/mL 24 unit (0.24 mL) subcut DAILY #10 06/09/24 subcutaneous solution (Semglee mL (insulin glargine-yfgn)) Novolog U-100 Insulin aspart 100 See Rx Instructions .Route 09/14/24 unit/mL subcutaneous solution .COMPLEX #50 mL (insulin aspart U-100) Results & Data (ED) Vital Signs Vital Signs - 24 hr 10/06/24 11:30 10/06/24 13:26 10/06/24 15:00 Temperature 39.1 C H Temperature Source Temporal Artery Scan Pulse Rate 89 Pulse Rate [Finger] 81 73 Respiratory Rate 18 18 18 Respiratory Effort / Characteristics Non-Labored Spontaneous Non-Labored Spontaneous Respiratory Depth Normal Normal Respiratory Pattern Regular Regular Blood Pressure 133/70 Blood Pressure [Left Arm] 105/51 L 117/68 Blood Pressure Mean 91 Blood Pressure Mean [Left Arm] 69 84 Pulse Oximetry 97 98 97 Oxygen Delivery Method Room Air Room Air Room Air Sepsis Recent Fever Within 48 Hours Yes Sepsis New/Unexplained Change in Mental Status No Sepsis Action Taken by Nursing No Action Required Laboratory Data 10/06/24 12:10 10/06/24 12:10 Lab Results 10/06/24 10/06/24 10/06/24 Range/Units 11:32 12:10 12:11 WBC 28.59 H (4.8-10.8) K/ul RBC 4.08 L (4.20-5.40) M/uL Hgb 13.4 (12.0-16.0) g/dl Hct 37.0 (37.0-47.0) % MCV 90.7 (80.0-100.0) fL MCH 32.8 (25.0-34.0) pg MCHC 36.2 H (32.0-36.0) g/dL RDW Std Deviation 39.1 (36.4-46.3) fL RDW Coeff of Mamie 11.8 (11.5-14.5) % Plt Count 227 (130-400) K/uL MPV 10.4 (9.4-12.4) fL Immature Gran % (Auto) 1.2 % Neut % (Auto) 85.9 % Lymph % (Auto) 4.0 % [place] % (Auto) 8.6 % Eos % (Auto) 0.0 % Baso % (Auto) 0.3 % Neut # (Auto) 24.56 H (1.40-6.50) K/uL Lymph # (Auto) 1.15 L (1.20-3.40) K/uL [place] # (Auto) 2.45 H (0.11-0.59) K/uL Eos # (Auto) 0.00 (0.00-0.50) K/uL Baso # (Auto) 0.09 (0.00-0.20) K/uL Immature Gran # (Auto) 0.34 H (0.01-0.20) K/uL Sodium 133 L (136-145) mmol/L Potassium 3.7 (3.5-5.1) mmol/L Chloride 100 (98-107) mmol/L Carbon Dioxide 21 (21-32) mmol/L Anion Gap 12 H (3-11) BUN 12 (6-23) mg/dl Creatinine 1.06 (0.6-1.2) mg/dl Est Cr Clr Drug Dosing 56.0 ml/min eGFR 64.80 BUN/Creatinine Ratio 11.3 (10-20) Glucose 183 H (70-99(Fasting)) mg/dl Lactate 1.6 (0.4-2.0) mmol/L Calcium 9.0 (8.6-10.3) mg/dl Total Bilirubin 0.8 (0.2-1.0) mg/dl AST 14 (13-39) U/L ALT 12 (7-52) U/L Alkaline Phosphatase 78 (34-104) U/L Total Protein 7.1 (6.0-8.3) gm/dl Albumin 4.1 (3.4-5.0) gm/dl Globulin 3.0 (2.5-4.0) gm/dl Albumin/Globulin Ratio 1.4 (0.9-2) Procalcitonin 2.11 H (0-0.5) ng/ml Urine Color Urine Appearance (Clear) Urine pH (4.5-7.5) Ur Specific [place] (1.000-1.030) Urine Protein (Negative) Urine Glucose (UA) (Negative) Urine Ketones (Negative) Urine Blood (Negative) Urine Nitrite (Negative) Urine Bilirubin (Negative) Urine Urobilinogen (Negative) Ur Leukocyte Esterase (Negative) Urine WBC (Auto) (0-5) /hpf Urine RBC (Auto) (0-2) /hpf U Hyaline Cast (Auto) (0-2) /lpf U Epithel Cells (Auto) (0-2) /hpf Urine Bacteria (Auto) (None Seen) Adenovirus (PCR) Not Detected (NotDetected) B. pertussis DNA (PCR) Not Detected (NotDetected) B.parapertussis DNA PCR Not Detected (NotDetected) C. pneumoniae DNA (PCR) Not Detected (NotDetected) Coronavirus OC43 (PCR) Not Detected (NotDetected) Coronavirus HKU1 (PCR) Not Detected (NotDetected) Coronavirus 229E (PCR) Not Detected (NotDetected) SARS-CoV-2 (PCR) Not Detected (NotDetected) Coronavirus NL63 (PCR) Not Detected (NotDetected) Human Metapneumovir PCR Not Detected (NotDetected) Influenza Type A (PCR) Not Detected (NotDetected) Influenza Type B (PCR) Not Detected (NotDetected) M. pneumoniae (PCR) Not Detected (NotDetected) Parainfluenza 1 (PCR) Not Detected (NotDetected) Parainfluenza 2 (PCR) Not Detected (NotDetected) Parainfluenza 3 (PCR) Not Detected (NotDetected) Parainfluenza 4 (PCR) Not Detected (NotDetected) RSV (PCR) Not Detected (NotDetected) Entero/Rhino (PCR) Not Detected (NotDetected) 10/06/24 Range/Units 12:54 WBC (4.8-10.8) K/ul RBC (4.20-5.40) M/uL Hgb (12.0-16.0) g/dl Hct (37.0-47.0) % MCV (80.0-100.0) fL MCH (25.0-34.0) pg MCHC (32.0-36.0) g/dL RDW Std Deviation (36.4-46.3) fL RDW Coeff of Mamie (11.5-14.5) % Plt Count (130-400) K/uL MPV (9.4-12.4) fL Immature Gran % (Auto) % Neut % (Auto) % Lymph % (Auto) % [place] % (Auto) % Eos % (Auto) % Baso % (Auto) % Neut # (Auto) (1.40-6.50) K/uL Lymph # (Auto) (1.20-3.40) K/uL [place] # (Auto) (0.11-0.59) K/uL Eos # (Auto) (0.00-0.50) K/uL Baso # (Auto) (0.00-0.20) K/uL Immature Gran # (Auto) (0.01-0.20) K/uL Sodium (136-145) mmol/L Potassium (3.5-5.1) mmol/L Chloride (98-107) mmol/L Carbon Dioxide (21-32) mmol/L Anion Gap (3-11) BUN (6-23) mg/dl Creatinine (0.6-1.2) mg/dl Est Cr Clr Drug Dosing ml/min eGFR BUN/Creatinine Ratio (10-20) Glucose (70-99(Fasting)) mg/dl Lactate (0.4-2.0) mmol/L Calcium (8.6-10.3) mg/dl Total Bilirubin (0.2-1.0) mg/dl AST (13-39) U/L ALT (7-52) U/L Alkaline Phosphatase (34-104) U/L Total Protein (6.0-8.3) gm/dl Albumin (3.4-5.0) gm/dl Globulin (2.5-4.0) gm/dl Albumin/Globulin Ratio (0.9-2) Procalcitonin (0-0.5) ng/ml Urine Color Yellow Urine Appearance Turbid A (Clear) Urine pH 5.5 (4.5-7.5) Ur Specific [place] 1.013 (1.000-1.030) Urine Protein 2+ H (Negative) Urine Glucose (UA) Negative (Negative) Urine Ketones 2+ H (Negative) Urine Blood 1+ H (Negative) Urine Nitrite Positive A (Negative) Urine Bilirubin Negative (Negative) Urine Urobilinogen Negative (Negative) Ur Leukocyte Esterase 3+ H (Negative) Urine WBC (Auto) >50 H (0-5) /hpf Urine RBC (Auto) 0-2 (0-2) /hpf U Hyaline Cast (Auto) 6-10 H (0-2) /lpf U Epithel Cells (Auto) 11-20 H (0-2) /hpf Urine Bacteria (Auto) 4+ H (None Seen) Adenovirus (PCR) (NotDetected) B. pertussis DNA (PCR) (NotDetected) B.parapertussis DNA PCR (NotDetected) C. pneumoniae DNA (PCR) (NotDetected) Coronavirus OC43 (PCR) (NotDetected) Coronavirus HKU1 (PCR) (NotDetected) Coronavirus 229E (PCR) (NotDetected) SARS-CoV-2 (PCR) (NotDetected) Coronavirus NL63 (PCR) (NotDetected) Human Metapneumovir PCR (NotDetected) Influenza Type A (PCR) (NotDetected) Influenza Type B (PCR) (NotDetected) M. pneumoniae (PCR) (NotDetected) Parainfluenza 1 (PCR) (NotDetected) Parainfluenza 2 (PCR) (NotDetected) Parainfluenza 3 (PCR) (NotDetected) Parainfluenza 4 (PCR) (NotDetected) RSV (PCR) (NotDetected) Entero/Rhino (PCR) (NotDetected) Administered Medications Ceftriaxone Sodium (Rocephin) 2,000 mg in 50 mls @ 100 mls/hr IV Q24H GILBERTO Stop: 10/08/24 13:59 Last Infusion: 10/06/24 14:48 Dose: Infused Documented By: Admin: 10/06/24 14:18 Dose: 100 mls/hr Documented By: ERIKA Insulin Human Regular (Insulin, Regular Pump) 1 each SC ACHS GILBERTO; Protocol Stop: 11/05/24 16:29 Last Admin: 10/06/24 17:26 Dose: Not Given Documented By: ANTONI Miscellaneous (Continuous Glucose Monitor) 0 each N/A ACHS GILBERTO Stop: 11/05/24 16:29 Last Admin: 10/06/24 17:24 Dose: 1 each Documented By: ANTONI Discontinued Medications Acetaminophen (Ofirmev) 1,000 mg in 100 mls @ 400 mls/hr IV NOW STA Stop: 10/06/24 13:09 Last Infusion: 10/06/24 13:24 Dose: Infused Documented By: Admin: 10/06/24 13:09 Dose: 400 mls/hr Documented By: ANU Ioversol (Optiray 320 100ml) 94 ml IV ONCE ONE Stop: 10/06/24 13:23 Last Admin: 10/06/24 13:22 Dose: 94 ml Documented By: STEFANIA Imaging Data Radiologist's Impression: Chest X-Ray 10/06/24 11:36 XR chest 1V portable CLINICAL HISTORY: Fever COMPARISON STUDY: Chest radiograph March 22, 2023. FINDINGS: Lung volumes are normal. Lungs are clear. There is no pneumothorax or pleural effusion. Cardiac size is normal. Mediastinal contours are normal. There is no evidence for pulmonary edema. IMPRESSION: No acute cardiopulmonary findings. ACT 112: Negative or not required by law. Electronically signed by: Pool Kinney M.D. 10/06/2024 12:40 PM Abdomen/Pelvis CT 10/06/24 13:01 CT OF THE ABDOMEN AND PELVIS WITH CONTRAST CLINICAL HISTORY: Suprapubic pain. Flank pain. COMPARISON STUDY: Pelvic ultrasound September 08, 2024. Right upper quadrant ultrasound February 15, 2017. TECHNIQUE: Following IV administration of 94 mL of Optiray, axial images of the abdomen and pelvis were obtained from the lung bases to the proximal femurs. Images were reviewed in the axial, sagittal, and coronal planes. IV contrast was administered without complication. Automated exposure control was utilized for the study. A dose lowering technique was utilized adhering to the principles of ALARA. CT DOSE: 568.28 mGy.cm FINDINGS: No pneumatosis, free air or portal venous gas is present. Liver, spleen, adrenal glands, kidneys and pancreas are unremarkable. Is no biliary or pancreatic ductal dilatation. Heterogeneous enhancement of the right kidney with striated nephrogram is noted. There is mild right perinephric stranding and fluid. No renal rim-enhancing fluid collection is present. There are also a few subtle hypoenhancing foci within the left kidney with minimal left perinephric stranding. Bladder wall thickening with adjacent stranding is present. There is wall thickening and enhancement of both ureters. There are no urinary calculi. There is no hydronephrosis. There is no evidence for a bowel obstruction. Intrauterine device is in place. There is a small amount of fluid within the pelvis. Major vasculature is patent. Appendix is normal. IMPRESSION: 1. Findings consistent with cystitis, bilateral pyelitis and right pyelonephritis. Probable mild left pyelonephritis. Numerous hypoenhancing foci within the right kidney with striated nephrogram. No rim-enhancing fluid collection to suggest abscess. 2. No urinary calculi or hydronephrosis. 3. No bowel obstruction. No bowel wall thickening. 4. Small amount of fluid within the pelvis. ACT 112: Negative or not required by law. Electronically signed by: Pool Kinney M.D. 10/06/2024 1:43 PM Discharge Plan Visit Data Chief Complaint: Flu Like Symptoms Stated Complaint: HEADACHE, BODYACHES, CHILLS, FEVER/100-103 ED Provider: Rosmery Monge Discharge Problem: Acute pyelitis, Pyelonephritis, Cystitis, Bacteremia Patient Disposition: Admitted As Inpatient Discharge Instructions Interventions: ED Discharge Assessment Last Done: 10/06/24 15:56
[2024-10-06 12:28] LABS: Hemoglobin 13.4 g/dl (12.0-16.0); Mean Corpuscular Hemoglobin 32.8 pg (25.0-34.0); Mean Corpuscular Hgb Conc 36.2 g/dL (32.0-36.0); Mean Corpuscular Volume 90.7 fL (80.0-100.0); Mean Platelet Volume 10.4 fL (9.4-12.4); Platelet Count 227 K/uL (130-400); RDW Coefficient of Variation 11.8 % (11.5-14.5); RDW Standard Deviation 39.1 fL (36.4-46.3); Red Blood Count 4.08 M/uL (4.20-5.40); White Blood Count 28.59 K/ul (4.8-10.8)
--- NOTE | 2024-10-06 12:42 | XRay Report ---
XR chest 1V portable CLINICAL HISTORY: Fever COMPARISON STUDY: Chest radiograph March 22, 2023. FINDINGS: Lung volumes are normal. Lungs are clear. There is no pneumothorax or pleural effusion. Car diac size is normal. Mediastinal contours are normal. There is no evidence for pulmonary edema. IMPRESSION: No acute cardiopulmonary findings. ACT 112: Negative or not required by law. Electronically signed by: Pool Kinney M.D. 10/06/2024 12:40 PM
[2024-10-06 12:44] LABS: Albumin Globulin Ratio 1.4 (0.9-2); Albumin Level 4.1 gm/dl (3.4-5.0); BUN Creatinine Ratio 11.3 (10-20); Bilirubin,Total 0.8 mg/dl (0.2-1.0); Potassium 3.7 mmol/L (3.5-5.1); Total Protein 7.1 gm/dl (6.0-8.3)
[2024-10-06 12:59] LABS: Adenovirus PCR Not Detected (NotDetected); Bordetella parapertussis PCR Not Detected (NotDetected); Bordetella pertussis PCR Not Detected (NotDetected); Chlamydia pneumoniae PCR Not Detected (NotDetected); Coronavirus 229E PCR Not Detected (NotDetected); Coronavirus CoV-2 (COVID19)PCR Not Detected (NotDetected); Coronavirus HKU1 PCR Not Detected (NotDetected); Coronavirus NL63 PCR Not Detected (NotDetected); Coronavirus OC43PCR Not Detected (NotDetected); Human Metapneumovirus PCR Not Detected (NotDetected); Influenza A PCR Not Detected (NotDetected); Influenza B PCR Not Detected (NotDetected); Mycoplasma pneumoniae PCR Not Detected (NotDetected); Parainfluenza Virus 1 PCR Not Detected (NotDetected); Parainfluenza Virus 2 PCR Not Detected (NotDetected); Parainfluenza Virus 3 PCR Not Detected (NotDetected); Parainfluenza Virus 4 PCR Not Detected (NotDetected); Respiratory Syncytial VirusPCR Not Detected (NotDetected); Rhinovirus/Enterovirus PCR Not Detected (NotDetected)
[2024-10-06 13:00] LABS: Basophils # (auto) 0.09 K/uL (0.00-0.20); Basophils % (auto) 0.3 %; Immature Granulocytes # (auto) 0.34 K/uL (0.01-0.20); Immature Granulocytes % (auto) 1.2 %; Lymphocytes # (auto) 1.15 K/uL (1.20-3.40); Monocytes # (auto) 2.45 K/uL (0.11-0.59); Monocytes % (auto) 8.6 %; Neutrophils # (auto) 24.56 K/uL (1.40-6.50); Neutrophils % (auto) 85.9 %
[2024-10-06] MEDS: ACETAMINOPHEN 1,000 MG/100 ML VIAL IV STA (13:09)
[2024-10-06] MEDS: OPTIRAY 320 100ml IV ONE (13:22)
[2024-10-06 13:25] LABS: Appearance Urine Turbid (Clear); Bacteria Urine Automated 4+ (None Seen); Bilirubin Urine Negative (Negative); Blood Urine 1+ (Negative); Color Urine Yellow; Glucose Urine UA Negative (Negative); Ketones Urine 2+ (Negative); Leukocyte Esterase Urine 3+ (Negative); Nitrite Urine Positive (Negative); Protein Urine 2+ (Negative); RBC Urine Automated 0-2 /hpf (0-2); Specific Gravity Urine 1.013 (1.000-1.030); Urobilinogen Urine Negative (Negative); WBC Urine Automated >50 /hpf (0-5); pH Urine 5.5 (4.5-7.5)
--- NOTE | 2024-10-06 13:46 | CT Scan Report ---
CT OF THE ABDOMEN AND PELVIS WITH CONTRAST CLINICAL HISTORY: Suprapubic pain. Flank pain. COMPARISON STUDY: Pelvic ultrasound September 08, 2024. Right upper quadrant ultrasound February 15, 2017 . TECHNIQUE: Following IV administration of 94 mL of Optiray, axial images of the abdomen and pelvis we re obtained from the lung bases to the proximal femurs. Images were reviewed in the axial, sagittal, and coronal planes. IV contrast was administered without complication. Automated exposure control wa s utilized for the study. A dose lowering technique was utilized adhering to the principles of ALARA . CT DOSE: 568.28 mGy.cm FINDINGS: No pneumatosis, free air or portal venous gas is present. Liver, spleen, adrenal glands, ki dneys and pancreas are unremarkable. Is no biliary or pancreatic ductal dilatation. Heterogeneous enh ancement of the right kidney with striated nephrogram is noted. There is mild right perinephric stran ding and fluid. No renal rim-enhancing fluid collection is present. There are also a few subtle hypoe nhancing foci within the left kidney with minimal left perinephric stranding. Bladder wall thickening with adjacent stranding is present. There is wall thickening and enhancement of both ureters. There are no urinary calculi. There is no hydronephrosis. There is no evidence for a bowel obstruction. Int rauterine device is in place. There is a small amount of fluid within the pelvis. Major vasculature i s patent. Appendix is normal. IMPRESSION: 1. Findings consistent with cystitis, bilateral pyelitis and right pyelonephritis. Probable mild left pyelonephritis. Numerous hypoenhancing foci within the right kidney with striated nephrogram. No rim -enhancing fluid collection to suggest abscess. 2. No urinary calculi or hydronephrosis. 3. No bowel obstruction. No bowel wall thickening. 4. Small amount of fluid within the pelvis. ACT 112: Negative or not required by law. Electronically signed by: Pool Kinney M.D. 10/06/2024 1:43 PM
[2024-10-06] MEDS: cefTRIAXone SODIUM 2,000 MG/50 ML BAG IV SCH (14:18)
--- NOTE | 2024-10-06 14:40 | History & Physical Report ---
Date of Service October 06, 2024 Assessment & Plan (1) Pyelonephritis: Plan: Fever, chills, abdominal pain, suprapubic tenderness, and lower back pain that began the afternoon of Thursday 10/04 Leukocytosis at 28.59 with a neutrophil predominance; febrile at 39.1 C on arrival UA positive on arrival Lactate WNL Procalcitonin ordered, pending A/P CT revealed cystitis, bilateral pyelitis, and bilateral pyelonephritis; no abscess seen Given patient's vitals and labs/imaging in the ED, there is some concern for bacteremia Most recent UCx grew pansensitive E. coli on 08/07/2024 Rocephin 2000 mg IV q24h Follow current blood/UCx Acetaminophen as needed for pain/fever A.m. CBC, BMP (2) Type 1 diabetes mellitus: Plan: Last A1c at 6.0% on 12/24/2023 Patient uses an OmniPod 5 insulin pump; CGM Pharmacy glycemic consult appreciated Patient requests to continue her insulin pump while inpatient; okay to do so T1DM diet Continue BSG ACHS Adjust regimen as needed AM A1c (3) Cystitis: (4) Fever: (5) Insulin pump in place: Plan Disposition: Admit to PCU telemetry Full code T1DM diet VTE PPx: Lovenox 40 mg SQ q24h History of Present Illness Chief Complaint: Flulike symptoms Primary Care Provider: Cezar Rose DO Liza is a pleasant 48-year-old female with PMH of T1DM, paresthesias, proliferative retinopathy, chronic migraine with aura, and HLD. She presented on 10/06 for new onset of headache, body aches, and chills that began on Thursday 10/04. Patient reports that her symptoms started Wednesday afternoon, and she has been taking NyQuil and ibuprofen intermittently for her pain. She reports that she has not been sleeping well the past 2 nights. She also endorses low, transverse abdominal pain/suprapubic tenderness x 2 days. She rates the pain 5/10 at present, and 9/10 at worst. The pain comes in waves and she characterizes it as an "aching" pain. Not alleviated by different positions. No recent falls/injuries/trauma to the abdomen or pelvis. The pain radiates across both flanks to the lower back. No prior history of kidney stones. She does have a history of UTIs, but they were mainly when she was younger; this is how she found out about her diabetes. Patient uses an OmniPod + CGM for her insulin pump, and she would like to continue using her insulin pump while inpatient. She reports that she did not take her regular morning medicines today; no recent change in medications. She denies smoking and tobacco use. She does endorse occasional social alcohol use. In regard to her penicillin allergy, she reports that she sometimes gets hives when she takes it; no history of anaphylaxis or throat closure. She reports that she tolerated the Rocephin given earlier well. Patient is hypotensive at 105/51 and febrile at 39.1 C at time of admission. ED course: Rocephin 2000 mg IV Acetaminophen 1000 mg IV ROS: Patient endorses fever, chills, night-sweats, dizziness/lightheadedness, terrible body aches, rigors, DOLL, lower back pain, flank pain, and low transverse abdominal pain/suprapubic tenderness. Patient denies N/V/D, changes in urinary/bowel habits, burning with urination, dysuria, saddle anesthesia, or numbness/tingling in the legs. Allergies Allergy/AdvReac Type Severity Reaction Status Date / Time metronidazole Allergy Intermediate Hives Verified 10/04/24 07:56 Penicillins Allergy Intermediate HIVES Verified 10/04/24 07:56 Home Medications Medication Instructions Recorded Confirmed Type glucagon (human recombinant) 1 mg 1 mg IM DIRECTED PRN 08/15/19 10/06/24 History solution for injection (Glucagon Hypoglycemia Emergency Kit) levonorgestrel 21 mcg/24 hr (up to 1 ea intrauterine ONCE 08/15/19 10/06/24 History 8 years) 52 mg intrauterine device blood sugar diagnostic (FreeStyle #10 ea 04/04/21 08/07/24 History Test strips) cholecalciferol (vitamin D3) 25 25 mcg PO QAM 09/30/21 10/06/24 History mcg/drop (1,000 unit/drop) oral drops vitamin B complex 1 tab PO DAILY 09/30/21 10/06/24 History magnesium oxide 400 mg PO DAILY 07/28/22 10/06/24 History riboflavin (vitamin B2) 400 mg 400 mg PO DAILY 07/28/22 10/06/24 History tablet Omnipod 5 G6 Intro Kit (Gen 5) #1 ea 10/02/22 08/07/24 Rx subcutaneous cartridge with controller (insulin pump cart,auto,BT-cntr) [id number] 1 cap PO DAILY PRN pain #10 caps 01/26/23 10/06/24 Rx 50 mg-300 mg-40 mg capsule (Fioricet) digital therapeutic,JESSICA device #1 ea 07/01/23 08/07/24 Rx fluticasone propionate 50 1 spray intranasal BID #16 grams 08/18/23 10/06/24 Rx mcg/actuation nasal spray,suspension Omnipod 5 G6 Pods (Gen 5) (insulin #30 ea 11/04/23 08/07/24 Rx pump cart,automated,BT) fluoxetine 20 mg capsule 20 mg PO QAM #90 caps 11/08/23 10/06/24 Rx pravastatin 20 mg tablet 20 mg PO DAILY 90 days #90 tabs 12/28/23 10/06/24 Rx ferrous sulfate 1 tab PO DAILY 04/21/24 10/06/24 History insulin glargine-yfgn 100 unit/mL 24 unit (0.24 mL) subcut DAILY #10 06/09/24 10/06/24 Rx subcutaneous solution (Semglee mL (insulin glargine-yfgn)) Novolog U-100 Insulin aspart 100 See Rx Instructions .Route 09/14/24 10/06/24 Rx unit/mL subcutaneous solution .COMPLEX #50 mL (insulin aspart U-100) topiramate 100 mg tablet 50 mg PO BID 10/04/24 10/06/24 History Past Med/Surg History Problem List (Updated 10/06/24 @ 18:10 by Rosmery Monge MD) Bacteremia (Acute) Cystitis (Acute) Pyelonephritis (Acute) Acute pyelitis (Acute) Insulin pump in place Fever Cystitis Pyelonephritis Chronic migraine without aura Gastroenteritis (Acute) Type 1 diabetes mellitus Hyperlipidemia Type 1 diabetes mellitus with diabetic neuropathy Paresthesias Proliferative retinopathy Fatigue Vitamin D deficiency Eosinopenia Pineal gland cyst Unrefreshed by sleep [place] Medical History (Updated 10/06/24 @ 18:10 by Rosmery Monge MD) Arthritis Diabetic retinopathy Migraine History of COVID-19 X 2 (LAST EPISODE 05/2022) RESOLVED Diabetes mellitus type 1 History of depression Surgical History History of orthopedic surgery Left first dorsal compartment release History of colonoscopy [place] teeth removed H/O eye surgery LASER PROCEDURE FOR DIABETIC RETINOPATHY RT/LEFT S/P trigger finger release LEFT/RIGHT S/P tendon repair ECU tendon repair (right) History of carpal tunnel release bilateral S/P cubital tunnel release bilateral History of laparoscopy with ovarian cystectomy History of section X 1 Family History Mother Dyslipidemia Grandmother (Maternal) Breast cancer Grandmother (Paternal) Breast cancer Other No family history of adverse response to anesthesia No pertinent family history Denies family history of Ovarian cancer Prostate cancer Myocardial infarction Colorectal cancer Social History Smoking Status: Never smoker Second Hand Exposure: No; Do You Dip or Chew Tobacco: No; Hx Alcohol Use: No Hx Substance Use: No Preferred Language: Occitan Communication Ability: Effective Visual Impairment: No Limitations Hearing Ability: Normal Transistor Tester Required: No Beliefs That Will Affect Care: None marital status: Current Living Situation: Spouse and Family Current Living Situation Comment: AND SON current occupational status: employed How many Children do You have: 1 Feels Safe at Home: Yes Safety Concerns: Feels Safe At This Time Childhood Exposure to Second-Hand Smoke: No Diet: regular Dental Care, Regularly: Yes Physical Activity Frequency: 3-4 Times per Week Seatbelt Use: always Sunscreen Use: Yes Assistive Devices: Contacts, Glasses and Other Assistive Devices Comment: Insulin Pump: Omni Pod with CGM Review of Systems Review of Systems: See HPI above Physical Exam Physical Exam: General: no acute distress; pleasant affect; at bedside; non-toxic appearing; cooperative; SpO2 97% on RA HEENT: normocephalic, atraumatic; no scleral icterus; PERRLA; vision and hearing grossly intact Neck: supple; trachea midline Skin: warm, dry without signs of tenting; no cyanosis; no rashes, bruising, lesions, or erythema noted CV: chest wall NTP; RRR; S1/S2 normal; no murmurs/rubs/gallops; pulses intact and symmetric at radial, DP, and PT Lungs: no acute respiratory distress; symmetrical chest wall expansion; clear breath sounds across all lung rodriguez w/o adventitious sounds; no wheezing ABD: Soft, NTP; BS present; no rebound/guarding; no distention; no rashes or bruising noted on the abdomen or flanks; flanks are TTP bilaterally; positive CVA tenderness bilaterally MSK: no tics or fasciculations; no edema noted in the LEs b/l, nonerythematous Neuro: A&Ox3; normal mood and affect; fluent speech; no focal deficits; sensation grossly intact in the LEs b/l Results & Data Results & Data Vital Signs (Past 12 Hours) Vital Signs Temp Pulse Pulse Resp BP BP Pulse Ox 10/06/24 13:26 81 18 105/51 L 98 10/06/24 11:30 39.1 C H 89 18 133/70 97 O2 Del Method 10/06/24 13:26 Room Air 10/06/24 11:30 Room Air Laboratory Results Abnormal lab results 10/06/24 10/06/24 Range/Units 12:10 12:54 WBC 28.59 H (4.8-10.8) K/ul RBC 4.08 L (4.20-5.40) M/uL MCHC 36.2 H (32.0-36.0) g/dL Neut # (Auto) 24.56 H (1.40-6.50) K/uL Lymph # (Auto) 1.15 L (1.20-3.40) K/uL Swain # (Auto) 2.45 H (0.11-0.59) K/uL Immature Gran # (Auto) 0.34 H (0.01-0.20) K/uL Sodium 133 L (136-145) mmol/L Anion Gap 12 H (3-11) Glucose 183 H (70-99(Fasting)) mg/dl Urine Appearance Turbid A (Clear) Urine Protein 2+ H (Negative) Urine Ketones 2+ H (Negative) Urine Blood 1+ H (Negative) Urine Nitrite Positive A (Negative) Ur Leukocyte Esterase 3+ H (Negative) Urine WBC (Auto) >50 H (0-5) /hpf U Hyaline Cast (Auto) 6-10 H (0-2) /lpf U Epithel Cells (Auto) 11-20 H (0-2) /hpf Urine Bacteria (Auto) 4+ H (None Seen) Diagnostic Findings Chest X-Ray 10/06/24 11:36 XR chest 1V portable CLINICAL HISTORY: Fever COMPARISON STUDY: Chest radiograph March 22, 2023. FINDINGS: Lung volumes are normal. Lungs are clear. There is no pneumothorax or pleural effusion. Cardiac size is normal. Mediastinal contours are normal. There is no evidence for pulmonary edema. IMPRESSION: No acute cardiopulmonary findings. ACT 112: Negative or not required by law. Electronically signed by: Pool Kinney M.D. 10/06/2024 12:40 PM Abdomen/Pelvis CT 10/06/24 13:01 CT OF THE ABDOMEN AND PELVIS WITH CONTRAST CLINICAL HISTORY: Suprapubic pain. Flank pain. COMPARISON STUDY: Pelvic ultrasound September 08, 2024. Right upper quadrant ultrasound February 15, 2017. TECHNIQUE: Following IV administration of 94 mL of Optiray, axial images of the abdomen and pelvis were obtained from the lung bases to the proximal femurs. Images were reviewed in the axial, sagittal, and coronal planes. IV contrast was administered without complication. Automated exposure control was utilized for the study. A dose lowering technique was utilized adhering to the principles of ALARA. CT DOSE: 568.28 mGy.cm FINDINGS: No pneumatosis, free air or portal venous gas is present. Liver, spleen, adrenal glands, kidneys and pancreas are unremarkable. Is no biliary or pancreatic ductal dilatation. Heterogeneous enhancement of the right kidney with striated nephrogram is noted. There is mild right perinephric stranding and fluid. No renal rim-enhancing fluid collection is present. There are also a few subtle hypoenhancing foci within the left kidney with minimal left perinephric stranding. Bladder wall thickening with adjacent stranding is present. There is wall thickening and enhancement of both ureters. There are no urinary calculi. There is no hydronephrosis. There is no evidence for a bowel obstruction. Intrauterine device is in place. There is a small amount of fluid within the pelvis. Major vasculature is patent. Appendix is normal. IMPRESSION: 1. Findings consistent with cystitis, bilateral pyelitis and right pyelonephritis. Probable mild left pyelonephritis. Numerous hypoenhancing foci within the right kidney with striated nephrogram. No rim-enhancing fluid collection to suggest abscess. 2. No urinary calculi or hydronephrosis. 3. No bowel obstruction. No bowel wall thickening. 4. Small amount of fluid within the pelvis. ACT 112: Negative or not required by law. Electronically signed by: Pool Kinney M.D. 10/06/2024 1:43 PM Code Status & VTE Plan Code Status Full code VTE Prophylaxis Plan VTE Prophylaxis will be ordered: Yes Supervising Physician Co-Signing Physician Notes Patient seen and examined, chart reviewed, case discussed with Jorden Weinberg PA-C and I agree with the assessment and plan as above except as otherwise noted Labs and images reviewed 48-year-old female who presents with pyelonephritis pyelitis, and concern for bacteremia due to rigors. UCx pending. Previous with pansensitive cultures. Continued on Rocephin. No signs of obstruction. Hemodynamically stable normotensive with normal pulse rate at time of evening visit. Agree with above. PG Care Time/CCT Total # of Minutes Spent Total Time Spent with Patient: Total time spent is greater than 50% in coordination of care (as documented) at patient's floor/unit and/or counseling patient: Coding [place] [address] INT INP/OBS CARE 3/75MIN Patient Type Established Medical Decision Making High Complexity Diagnoses Pyelonephritis N12 Type 1 diabetes mellitus E10.9 Cystitis N30.90 Fever R50.[address] Z96.41
[2024-10-06] MEDS ORDERED: GLUCOSE 40% GEL 15 GM TUBE PO PRN (16:05)
[2024-10-06] MEDS ORDERED: ONDANSETRON INJ 2 MG/ML 2 ML VIAL IV PRN (16:05)
[2024-10-06] MEDS ORDERED: CARBOHYDRATES FOR HYPOGLYCEMIA PO PRN (16:05)
[2024-10-06] MEDS ORDERED: INSULIN HUMAN REGULAR SC PRN (16:05)
[2024-10-06] MEDS ORDERED: GLUCOSE 10 TAB/TUBE PO PRN (16:05)
[2024-10-06] MEDS ORDERED: DEXTROSE 50% 50 ML SYRINGE IV PRN (16:05)
[2024-10-06] MEDS ORDERED: GLUCAGON FOR INJ 1 MG VIAL SQ PRN (16:05)
[2024-10-06] MEDS: Continuous Glucose Monitor SCH (17:24)
[2024-10-06] MEDS: INSULIN, Regular PUMP SC SCH (17:26)
--- OUTSIDE RECORDS SUMMARY | 2024-10-06 20:10 | External Medical Summary | Continuity of Care Document ---
Author Name Unknown Organization [id number] Address [address] [place] [id number] Care Team Providers Care Hearing Aid Specialist Name Role Phone Cezar Rose Primary Care Physician [phone] [id number] Date(s): 10/02/24 - 10/02/24 [facility] [address] [facility] [address] [facility] [address] [place] [id number] Encounter Diagnosis Adhesive capsulitis of left shoulder(Discharge Diagnosis) - 10/02/24 Calcific tendinitis, left upper arm(Discharge Diagnosis) - 10/02/24 Discharge Disposition: Home or Self Care Attending Physician: MD Waterman Wayne J Allergies, Adverse Reactions, Alerts Substance Criticality Severity Reaction Reaction Severity Status penicillins Swelling Hives Active Flagyl swelling hives Active Assessment and Plan Extracted from: Title:Clinical Document Author:MD Waterman Wayne J Date:10/02/24 OUTPATIENT NOTE Name: TESSIEINDIA GUEVARA Patient Number:[id number] : 1975 Date of Service: 10/02/2024 Continues to be problematic. At this point in time has significant stiffness and pain. Exam reveals weakness with isolated supraspinatus testing is marked limitations of abduction external rotation about 80% of normal neurovascular check grossly normal distally median radial ulnar suprascapular x-ray nerves. X-rays and MRI scan are reviewed revealing substantial calcific tendinopathy. Plan at this point times proceed with surgical treatment arthroscopically to include subacromial decompression biceps tenotomy rotator cuff repair as needed decompression of calcific tendinopathy. She states she understands. Consent obtained. No guarantees given. Told her she need a least a minimum of 4 weeks in a sling depending on what we do with the rotator cuff could be extended to 6 weeks. [facility] paperwork dropped off. Medications FLUoxetine 20 mg oral capsule Start: 07/18/18 9:56:00 AM EDT, 1 cap, PO, Daily Start Date: 07/18/18 Status: Ordered Keflex 500 mg oral capsule Start: 10/02/24 9:01:00 AM EST, 1 cap, PO, tid, Disp# 12 cap, Stop: 10/28/24 9:03:00 AM EST, Pharmacy: [id number], Earliest Fill Date: 10/02/24 Start Date: 10/02/24 Stop Date: 10/28/24 Status: Ordered NovoLOG 100 units/mL injectable solution Start: 02/18/22 7:48:00 AM EDT, See Instructions Start Date: 02/18/22 Status: Ordered oxyCODONE 5 mg oral tablet Start: 10/02/24 9:02:00 AM EST, See Instructions, Disp# 18 tab, Refills: 0, 1-2 tabs po every 4-6 hours, PRN: as needed for pain, Stop: 10/24/24 9:04:00 AM EST, Pharmacy: [id number], Earliest Fill Date: 10/02/24 Start Date: 10/02/24 Stop Date: 10/24/24 Status: Ordered Topamax 25 mg oral tablet Start: 02/18/22 9:01:00 AM EDT, See Instructions, Disp# 120 tab, Refills: 3, 1 tab po daily x 1 week, 1 tab bid x 1 week, 1 tab in am and 2 tabs in the pm x 1 week, 2 tabs bid., Pharmacy: [id number] Start Date: 02/18/22 Status: Ordered Ubrelvy 50 mg oral tablet Start: 02/18/22 9:06:00 AM EDT, 1 tab, PO, ONCE, Disp# 10 tab, Refills: 1, For headache rescue. may repeat dose in 2 hours if needed. Do not exceed 2 tablets in 24 hours or 4 tablets a week., Pharmacy: [id number] Start Date: 02/18/22 Status: Ordered Mental Status 10/02/24 Barriers to Learning one year None evide nt Mandatory Health Literacy Documentation Yes Health Literacy Communication Barriers N ever Primary Language Luxembourgish Problem List Condition Confirmation Course Effective Dates Status H ealth Status Informant Acne Confirmed Active Adhesive capsulitis of left shoulder Confirmed Active Calcific tendonitis of upper arm Confirmed Active Carpal tunnel syndrome Confirmed Active Cubital tunnel syndrome Confirmed Active Diabetes in Confirmed Active Diabetes mellitus Confirmed Active Advanced maternal age, primigravida Confirmed Active Headache Confirmed Active Right knee pain Confirmed Active 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 Confirmed Active Wound disruption, post-op, skin Confirmed Active Prevention status 1 Confirmed Active Tendinitis, de Quervain's Confirmed Active Skin lesion Confirmed Active Synovitis of knee Confirmed Active De Quervain's tenosynovitis, right Confirmed Active Trigger finger of left thumb Confirmed Active Left trigger finger Confirmed Active Verruca Confirmed Active 1kidney function Diagnosis Diagnosis Type Effective Dates Health Status Clinical Service Informant Adhesive capsulitis of left shoulder Discharge Diagnosis 10/02/24 Calcific tendinitis, left upper arm Discharge Diagnosis 10/02/24 Procedures Procedure Date Related Diagnosis Body Site Status Punch biopsy 07/07/19 Completed Shave biopsy and cauterisati on of skin 1 09/09/17 Completed Punch biopsy of skin 05/11/17 Comp leted Carpal tunnel release Com pleted Ovarian cyst Completed Surgery 2 Completed Surgery Completed 1skin tags on bilateral nipples 2cubital tunnel surgery Vital Signs Most recent to oldest [Reference Range]: 1 Height 166.5 cm (10/02/24 8:09 AM) Patient Weight 66.2 kg (10/02/24 8:09 AM) Body Mass Index 23.88 kg/m2 (10/02/24 8:09 AM) Temperature [36.5-37.9 DegC] 36.6 DegC (10/02/24 8:09 AM) Respiratory Rate 20 br/min (10/02/24 8:09 AM) Blood Pressure 132/70mmHg (10/02/24 8:09 AM) Social History Social History Type Response Tobacco Former smoker, Cigar ettes 1 Smoking Status Never smoked cigaret katie Sex Female Sex Representation Female (finding) 1Smoked during early Pre-OP H & P * ICNDY Fishman, Katy R: PERFORM, MODIFY, MODIFY, MODIFY Event Display: Pre-OP H & P Authored Date: Name:INDIA KURTZ Patient Number:[id number] :1975 Date of Service:10/02/2024 Chief Complaint Pre op Left shoulder EVAN History of Present Illness Marlyn is here today for a preoperative history and physical. She has been having ongoing left shoulder pain for the last year. She has done cortisone injections as well as physical therapy.At this point in time has significant stiffness and pain. She complains of pain most over her anterior shoulder, biceps tendon radiating down her entire arm on the ulnar side. Her range of motion improved slightly with physical therapy but her pain has worsened. She has pain on a daily basis.It affects all of her daily activities. She has tried Tylenol and [id number] anti-inflammatories for pain control. She had an MRI of her left shoulder reveals substantial calcific tendinopathy. Due to her failure of conservative treatment surgical intervention was recommended. She agrees to proceed with surgery. Review of Systems Denies any recent cough, cold, fevers, chills or flulike symptoms. She denies any lightheadedness, dizziness, syncopal episodes, headaches, migraines or seizures. Denies any bleeding or clotting disorders or history of DVT or pulmonary embolism. Denies any recent hospitalizations. Denies any history of metal sensitivity, latex allergy or MRSA. Denies any shortness of breath or chest pain. Denies abdominal pain, heartburn, indigestion, nausea, vomiting, diarrhea or constipation. Denies any urinary tract infections. Denies any hearing or vision changes. Denies any dental problems. Physical Exam Vitals & Measurements T:36.6C RR:20 BP:132/70 SpO2:98% HT:166.5cm WT:66.2kg WT:66.200kg(Dosing) BMI:23.88 Vitals:Last Updated 10/02/24 08:27 Date Temp BP Location Pulse RR SpO2 Pain 10/02/24 2 10/02/24 36.6 132/70 20 98 10/02/24 2 Height and Weight:Last Updated 10/02/24 08:09 Date BMI Wt(kg) Wt(lb) Method Ht(cm) (ft-in) Method 10/02/24 23.88 66.2 146 Standing Scale 166.5 5-5 Standing 09/13/23 22.17 62.8 138 Standing Scale 168.3 5-6 02/18/22 26.16 69.5 153 Standing Scale 163 5-4 Standing General:Well-dressed, well-nourished. Normal mood and affect. Alert and oriented x3. HEENT:Head: Atraumatic, normocephalic. Eyes: Extraocular movements intact, pupils equal round and reactive to light, sclera normal. Ears: Ears grossly normal, TMs are clear normal light reflex.Nose: Nares are patent bilaterally. Throat: Oropharynx clear mucous membranes moist good dentition uvula midline. Neck:Supple, no lymphadenopathy, nontender palpation, full range of motion. Cardiac:Regular rate and rhythm, normal S1, S2. No murmurs, rubs or gallops appreciated. Lungs:Clear to auscultation bilaterally. No adventitious sounds. No accessory muscle use. Abdomen:Soft, nontender, nondistended, normal bowel sounds heard in all 4 quadrants. Extremities: Focus on the left upper extremity: Sensation intact to the median, radial, ulnar, axillary, and subscapular nerve distributions. Restricted capsular pattern Positive impingement and Borden test Pain with resisted supraspinatus and infraspinatus function Normal cervical exam Normal reflexes Diagnostic Results MRI reveals substantialcalcific tendonitis. I reviewed x-rays of the left shoulder from 09/13/2023 which shows evidence of calcific tendonitis.No evidence of fracture or significant arthritis. Assessment/Plan 1.Adhesive capsulitis of left shoulder Patient is scheduled for left shoulder arthroscopy, subacromial decompression, biceps tenotomy, rotator cuff repair, capsular release with Dr. Waterman on October 24, 2024. Risk and complications of the procedure were explained to the patient and include but are not limited to infection, pain, bleeding, scarring, nerve or blood vessel damage, wound problems, weakness, stiffness, incomplete relief of symptoms, hardware failure, fracture, recurrent tear, recurrent instability, tendon or ligament injury, blood clots, embolisms, heart attack, stroke or . All questions were answeredand informed consent was obtained. She does not need any preoperative laboratory work or EKG prior to surgery. She will have preoperative medical clearance from her family physician later this week. Postoperative course was discussed. All questions were answered. She was instructed on theusage of the CHG class preoperatively. She was given a prescription for Keflex for 4 days after flores rgery. She was also provided with a oxycodone prescription for postoperative pain control. She will follow-up as scheduled for her postoperative day 1 dressing change. She will follow-up with outpatient physical therapy as scheduled. She understands and agrees with the plan. 2.Calcific tendinitis, left upper arm This chart was completed utilizing [employer] voice recognition software. Grammatical errors, random word insertions, pronoun errors, and in complete sentences are an occasional consequence of the system. Any questions or concerns about the content, text, or information contained within the body of this dictation should be addressed directly to the provider for clarification. Problem List/Past Medical History Ongoing Acne Adhesive capsulitis of left shoulder Advanced maternal age, primigravida Calcific tendonitis of upper arm Carpal tunnel syndrome Cubital tunnel syndrome De Quervain's tenosynovitis, right Diabetes in Diabetes mellitus Headache 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 Left trigger finger Prevention status Right knee pain Skin lesion Synovitis of knee Tendinitis, de Quervain's Trigger finger of left thumb Verruca Wound disruption, post-op, skin Migraines Procedure/Surgical History Punch biopsy| Service Date: 07/07/2019Shave biopsy and cauterisation of skin| Service Date: 09/09/2017Punch biopsy of skin| Service Date: 05/11/2017Ovarian cystSurgerySurgeryCarpal tunnel release Trigger digit release in 9 of her digits Bilateral de Quervain's release ECU tendon right elbow repair Medications Home FLUoxetine(FLUoxetine 20 mg oral capsule), 20 mg= 1 cap, PO, Daily insulin aspart(NovoLOG 100 units/mL injectable solution), See Instructions topiramate(Topamax 25 mg oral tablet), See Instructions, 3 refills ubrogepant(Ubrelvy 50 mg oral tablet), 50 mg= 1 tab, PO, ONCE, 1 refills Allergies Flagylswelling, hives penicillinsSwelling, Hives Social History Smoking Status Never smoked cigarettes Tobacco - Denies Tobacco Use Use:Former smoker Type:Cigarettes - Comments: Smoked during early 20's Family History Family history is negative Electronic Signature on File Electronically Reviewed/Signed by: Katy Fishman PA-C Author Signature Dt/Tm:10/04/2024 04:03PM Division of Sports Medicine Electronically Reviewed/Signed by: Lucian Waterman MD Cosigner Signature Dt/Tm: 10/04/2024 04:21 PM Telecom Coordinator for Clinical Affairs, [facility] Lauren Professor in Orthopaedics Lining [employer], [facility] Outpatient Note * MD Waterman Wayne J: PERFORM Event Display: .Outpt Note Authored Date: [id number] OUTPATIENT NOTE Name: INIDA KURTZ Patient Number:[id number] : 1975 Date of Service: 10/02/2024 Continues to be problematic. At this point in time has significant stiffness and pain. Exam revealsweakness with isolated supraspinatus testing is marked limitations of abduction external rotation about 80% of normal neurovascular check grossly normal distally median radial ulnar suprascapular x-ray nerves. X- rays and MRI scan are reviewed revealing substantial calcific tendinopathy. Plan at this point times proceed with surgical treatment arthroscopically to include subacromial decompression biceps tenotomy rotator cuff repair as needed decompression of calcific tendinopathy. She states sheunderstands. Consent obtained. No guarantees given. Told her she need a least a minimum of 4 weeks in a sling depending on what we do with the rotator cuff could be extended to 6 weeks. [facility] paperwork dropped off. Electronic Signature on File Electronically Reviewed/Signed by: Lucian Waterman MD Author Signature Dt/Tm:10/02/2024 08:34 AM Telecom Coordinator for Clinical Affairs, [facility] Lauren Professor in Orthopaedics [employer], [facility] W Patient Care team information Care Team Personnel Name: MD Waterman Wayne J Position: Physician - Sports Medicine [place] Member Role: Lifetime Relationship Address: [address] [address] [place] Name: DO Rose William Price Position: Referring Member Role: Primary Care Provider Address: [address] [address] [place] Care Team Related Persons Name: TESSIE MUÑOZ"
[2024-10-06] MEDS: FLUTICASONE PROPIONATE NA SPR 16 GM BTL SCH (20:14)
[2024-10-06] MEDS: TOPIRAMATE 50 MG TAB PO SCH (20:14)
[2024-10-06] MEDS: ENOXAPARIN INJ 40 MG/0.4 ML SYR SQ SCH (20:14)
[2024-10-06] MEDS: HYDROmorphone INJ 0.5 MG/0.5 ML SYR IV STA (20:45)
[2024-10-07] MEDS: HYDROmorphone INJ 0.5 MG/0.5 ML SYR IV STA (02:40)
[2024-10-07 04:02] LABS: A calco-baum cmplx NotReported Not Detected (NotDetected); Bact fragilis Not Reported Not Detected (NotDetected); Blood Culture Id Panel See PCR Comment (NotDetected); C auris Not Reported Not Detected (NotDetected); CTX-M Resistant Gene Not Detected (NotDetected); Calbicans Not Reported Not Detected (NotDetected); Candida glabrata Not Reported Not Detected (NotDetected); Candida krusei Not Reported Not Detected (NotDetected); Cneoformans/gatti Not Reported Not Detected (NotDetected); Cparapsilosis Not Reported Not Detected (NotDetected); E cloacae compx Not Reported Not Detected (NotDetected); Efaecalis Not Reported Not Detected (NotDetected); Efaecium Not Reported Not Detected (NotDetected); Enterobacterales DETECTED (NotDetected); Enterobacterales Not Reported DETECTED (NotDetected); Escherichia coli Not Reported DETECTED (NotDetected); H influenzae Not Reported Not Detected (NotDetected); IMP Resistant Gene Not Detected (NotDetected); K aerogenes Not Reported Not Detected (NotDetected); KPC Resistant Gene Not Detected (NotDetected); Koxytoca Not Reported Not Detected (NotDetected); Kpneumoniae grp Not Reported Not Detected (NotDetected); Lmonocyt Not Reported Not Detected (NotDetected); N meningitidis Not Reported Not Detected (NotDetected); NDM Resistant Gene Not Detected (NotDetected); OXA 48 Like Resistant Gene Not Detected (NotDetected); P aeruginosa Not Reported Not Detected (NotDetected); Proteus spp Not Reported Not Detected (NotDetected); Salmonella spp Not Reported Not Detected (NotDetected); Staph lugdunensis Not Reported Not Detected (NotDetected); Staph spp. Not Reported Not Detected (NotDetected); Staphaureus Not Reported Not Detected (NotDetected); Staphepi Not Reported Not Detected (NotDetected); Stenmaltophilia Not Reported Not Detected (NotDetected); Strep agal(GrpB) Not Reported Not Detected (NotDetected); Strep pneum Not Reported Not Detected (NotDetected); Strep pyog (GrpA) Not Reported Not Detected (NotDetected); Strep spp Not Reported Not Detected (NotDetected); VIM Resistant Gene Not Detected (NotDetected); mcr-1 Colistin Resistant Gene Not Detected (NotDetected)
[2024-10-07 07:02] LABS: Hematocrit (blood only) 35.1 % (37.0-47.0); Hemoglobin 12.5 g/dl (12.0-16.0); Mean Corpuscular Hemoglobin 32.1 pg (25.0-34.0); Mean Corpuscular Hgb Conc 35.6 g/dL (32.0-36.0); Mean Corpuscular Volume 90.2 fL (80.0-100.0); Mean Platelet Volume 10.7 fL (9.4-12.4); Platelet Count 222 K/uL (130-400); RDW Coefficient of Variation 12.1 % (11.5-14.5); RDW Standard Deviation 39.9 fL (36.4-46.3); Red Blood Count 3.89 M/uL (4.20-5.40); White Blood Count 24.54 K/ul (4.8-10.8)
[2024-10-07 07:23] LABS: BUN Creatinine Ratio 16.7 (10-20); Calcium 9.2 mg/dl (8.6-10.3); Creatinine Clr Calc Pharmacy 61.9 ml/min; Potassium 3.8 mmol/L (3.5-5.1)
[2024-10-07] MEDS ORDERED: MoRPHine SULFATE 2 MG/ML CARP IV PRN ×2 (07:26→21:34)
[2024-10-07 07:27] LABS: Basophils # (auto) 0.06 K/uL (0.00-0.20); Basophils % (auto) 0.2 %; Dohle Bodies 1+; Eosinophils # (auto) 0.01 K/uL (0.00-0.50); Immature Granulocytes # (auto) 0.42 K/uL (0.01-0.20); Immature Granulocytes % (auto) 1.7 %; Lymphocytes # (auto) 1.62 K/uL (1.20-3.40); Lymphocytes % (auto) 6.6 %; Monocytes # (auto) 2.11 K/uL (0.11-0.59); Monocytes % (auto) 8.6 %; Neutrophils # (auto) 20.32 K/uL (1.40-6.50); Neutrophils % (auto) 82.9 %
[2024-10-07 07:37] LABS: Estimated Average Glucose 134 mg/dl; Hemoglobin A1C 6.3 % (4.5-5.6)
[2024-10-07] MEDS: ACETAMINOPHEN 325 MG TAB PO PRN (07:46)
[2024-10-07] MEDS: MoRPHine SULFATE 2 MG/ML CARP IV PRN ×2 (07:47→22:11)
[2024-10-07] MEDS: MAGNESIUM OXIDE 400 MG TAB PO SCH (08:47)
[2024-10-07] MEDS: PRAVASTATIN SOD 20 MG TAB PO SCH (08:47)
[2024-10-07] MEDS: FLUoxetine HCL 20 MG CAP PO SCH (08:47)
--- NOTE | 2024-10-07 13:56 | Hospitalist Progress Note ---
Date of Service October 07, 2024 Assessment & Plan (1) Pyelonephritis: Plan: Fever, chills, abdominal pain, suprapubic tenderness, and lower back pain that began the afternoon of Thursday 10/04 Leukocytosis at 28.59 with a neutrophil predominance; febrile at 39.1 C on arrival UA positive on arrival Lactate WNL A/P CT revealed cystitis, bilateral pyelitis, and bilateral pyelonephritis; no abscess seen Blood culture growing E. coli Urine culture growing E. coli Awaiting sensitivities Patient was started on Rocephin with clinical improvement Continue (2) Type 1 diabetes mellitus: Plan: Last A1c at 6.0% on 12/24/2023 Patient uses an OmniPod 5 insulin pump; CGM Pharmacy glycemic consult appreciated Patient requests to continue her insulin pump while inpatient; okay to do so T1DM diet Continue BSG ACHS Adjust regimen as needed A1c 6.3 (3) Cystitis: (4) Fever: (5) Insulin pump in place: Plan Full code T1DM diet VTE PPx: Lovenox 40 mg SQ q24h Admission and Anticipated Discharge Date Admission Date: October 06, 2024 Subjective Patient was seen and examined at 10:15 AM. She says that she is feeling slightly better. No chills have resolved. She still is having pain and requiring morphine to keep her pain controlled. She is accompanied by her family at the bedside. Review of Systems Review of Systems: All systems reviewed & are unremarkable except as noted in Subjective Physical Exam Physical Exam: General: Awake, conversant Heart: S1, S2/regular rate and rhythm, no murmur rubs or gallops Lungs: Clear to auscultation bilaterally. Normal effort Abdomen: Soft/nontender/nondistended. No hepatosplenomegaly Extremities: No clubbing/cyanosis. No edema Behavior: Appropriate, cooperative Results & Data Results & Data Vital Signs (Past 12 Hours) Vital Signs Temp Pulse Pulse Resp BP Pulse Ox O2 Del Method 10/07/24 11:55 36.9 C 69 18 105/62 98 Room Air 10/07/24 10:16 Room Air 10/07/24 08:06 38.7 C H 82 18 107/66 98 Room Air 10/07/24 05:49 78 10/07/24 02:41 37.1 C 83 18 120/70 95 Room Air Laboratory Results Abnormal lab results 10/06/24 10/06/24 10/07/24 Range/Units 12:11 17:17 02:44 WBC (4.8-10.8) K/ul RBC (4.20-5.40) M/uL Hct (37.0-47.0) % Neut # (Auto) (1.40-6.50) K/uL [place] # (Auto) (0.11-0.59) K/uL Immature Gran # (Auto) (0.01-0.20) K/uL Anion Gap (3-11) Glucose (70-99(Fasting)) mg/dl POC Glucose 165 H (70-99) mg/dl Hemoglobin A1c (4.5-5.6) % Procalcitonin 2.11 H (0-0.5) ng/ml Enterobacterales (PCR) DETECTED A (NotDetected) E. coli (PCR) DETECTED A (NotDetected) 10/07/24 10/07/24 Range/Units 06:30 07:22 WBC 24.54 H (4.8-10.8) K/ul RBC 3.89 L (4.20-5.40) M/uL Hct 35.1 L (37.0-47.0) % Neut # (Auto) 20.32 H (1.40-6.50) K/uL [place] # (Auto) 2.11 H (0.11-0.59) K/uL Immature Gran # (Auto) 0.42 H (0.01-0.20) K/uL Anion Gap 12 H (3-11) Glucose 163 H (70-99(Fasting)) mg/dl POC Glucose 167 H (70-99) mg/dl Hemoglobin A1c 6.3 H (4.5-5.6) % Procalcitonin (0-0.5) ng/ml Enterobacterales (PCR) (NotDetected) E. coli (PCR) (NotDetected) PG Care Time/CCT Total # of Minutes Spent Total Time Spent with Patient: Total time spent is greater than 50% in coordination of care (as documented) at patient's floor/unit and/or counseling patient: Coding Level of Care Code 85677 SUB INP/OBS CARE 2/35MIN Diagnoses Pyelonephritis N12 Type 1 diabetes mellitus E10.9 Cystitis N30.90 Fever R50.[address] Z96.41
[2024-10-07] MEDS ORDERED: cefTRIAXone SODIUM 2,000 MG/50 ML BAG IV SCH (14:00)
[2024-10-07] MEDS: SODIUM CHLORIDE 0.9% 1,000 ML IV SCH (16:16)
[2024-10-08 06:52] LABS: Basophils # (auto) 0.05 K/uL (0.00-0.20); Basophils % (auto) 0.3 %; Eosinophils # (auto) 0.05 K/uL (0.00-0.50); Eosinophils % (auto) 0.3 %; Hematocrit (blood only) 32.7 % (37.0-47.0); Hemoglobin 11.6 g/dl (12.0-16.0); Immature Granulocytes # (auto) 0.25 K/uL (0.01-0.20); Immature Granulocytes % (auto) 1.4 %; Lymphocytes # (auto) 0.94 K/uL (1.20-3.40); Lymphocytes % (auto) 5.4 %; Mean Corpuscular Hemoglobin 32.4 pg (25.0-34.0); Mean Corpuscular Hgb Conc 35.5 g/dL (32.0-36.0); Mean Corpuscular Volume 91.3 fL (80.0-100.0); Mean Platelet Volume 10.7 fL (9.4-12.4); Monocytes # (auto) 1.18 K/uL (0.11-0.59); Monocytes % (auto) 6.8 %; Neutrophils % (auto) 85.8 %; Platelet Count 221 K/uL (130-400); RDW Coefficient of Variation 11.9 % (11.5-14.5); Red Blood Count 3.58 M/uL (4.20-5.40); White Blood Count 17.37 K/ul (4.8-10.8)
[2024-10-08 07:27] LABS: BUN Creatinine Ratio 16.7 (10-20); Calcium 8.7 mg/dl (8.6-10.3); Creatinine Clr Calc Pharmacy 82.5 ml/min; Potassium 3.5 mmol/L (3.5-5.1)
[2024-10-08] MEDS: POLYETHYLENE (MIRALAX) 17 GM PACK PO SCH (09:43)
--- NOTE | 2024-10-08 14:09 | Hospitalist Progress Note ---
Date of Service October 08, 2024 Assessment & Plan (1) Pyelonephritis: Plan: Fever, chills, abdominal pain, suprapubic tenderness, and lower back pain that began the afternoon of Thursday 10/04 Leukocytosis at 28.59 with a neutrophil predominance; febrile at 39.1 C on arrival UA positive on arrival Lactate WNL A/P CT revealed cystitis, bilateral pyelitis, and bilateral pyelonephritis; no abscess or stones seen Blood culture growing E. coli Urine culture growing E. coli Pansensitive Leukocytosis improved from 28,000-17,000 Blood pressure stable Clinically improving but still spiking fevers Continue Rocephin Continue pain control Discontinue IV fluids (2) Type 1 diabetes mellitus: Plan: Last A1c at 6.0% on 12/24/2023 Patient uses an OmniPod 5 insulin pump; CGM Pharmacy glycemic consult appreciated Patient requests to continue her insulin pump while inpatient; okay to do so T1DM diet Continue BSG ACHS Adjust regimen as needed A1c 6.3 (3) Cystitis: (4) Fever: (5) Insulin pump in place: Plan Full code T1DM diet VTE PPx: Lovenox 40 mg SQ q24h Admission and Anticipated Discharge Date Admission Date: October 06, 2024 Subjective Patient was seen and examined at 10:55 AM. She stated that overall she was fee ling better with better pain control. She was informed that the white count is coming down. The E. coli that is growing in her blood and urine are pansensitive. She felt encouraged with the news. Review of Systems Review of Systems: All systems reviewed & are unremarkable except as noted in Subjective Physical Exam Physical Exam: General: Awake, conversant Heart: S1, S2/regular rate and rhythm, no murmur rubs or gallops Lungs: Clear to auscultation bilaterally. Normal effort Abdomen: Soft/nontender/nondistended. No hepatosplenomegaly. Positive CVA tenderness bilaterally Extremities: No clubbing/cyanosis. No edema Behavior: Appropriate, cooperative Results & Data Results & Data Vital Signs (Past 12 Hours) Vital Signs Temp Pulse Resp BP Pulse Ox O2 Del Method 10/08/24 10:46 37.7 C H 70 20 117/67 93 Room Air 10/08/24 09:15 36.8 C 10/08/24 08:00 Room Air 10/08/24 07:43 38.5 C H 87 18 125/61 96 Room Air 10/08/24 02:55 36.8 C 67 16 115/67 97 Room Air Laboratory Results Abnormal lab results 10/08/24 10/08/24 Range/Units 06:14 07:23 WBC 17.37 H (4.8-10.8) K/ul RBC 3.58 L (4.20-5.40) M/uL Hgb 11.6 L (12.0-16.0) g/dl Hct 32.7 L (37.0-47.0) % Neut # (Auto) 14.90 H (1.40-6.50) K/uL Lymph # (Auto) 0.94 L (1.20-3.40) K/uL [place] # (Auto) 1.18 H (0.11-0.59) K/uL Immature Gran # (Auto) 0.25 H (0.01-0.20) K/uL Glucose 172 H (70-99(Fasting)) mg/dl POC Glucose 157 H (70-99) mg/dl PG Care Time/CCT Total # of Minutes Spent Total Time Spent with Patient: Total time spent is greater than 50% in coordination of care (as documented) at patient's floor/unit and/or counseling patient: Coding Level of Care Code 92318 SUB INP/OBS CARE 2/35MIN Diagnoses Pyelonephritis N12 Type 1 diabetes mellitus E10.9 Cystitis N30.90 Fever R50.[address] Z96.41
[2024-10-09 07:46] LABS: Basophils # (auto) 0.08 K/uL (0.00-0.20); Basophils % (auto) 0.6 %; Eosinophils # (auto) 0.15 K/uL (0.00-0.50); Eosinophils % (auto) 1.2 %; Hematocrit (blood only) 30.1 % (37.0-47.0); Hemoglobin 11.1 g/dl (12.0-16.0); Immature Granulocytes # (auto) 0.44 K/uL (0.01-0.20); Immature Granulocytes % (auto) 3.5 %; Lymphocytes # (auto) 1.44 K/uL (1.20-3.40); Lymphocytes % (auto) 11.4 %; Mean Corpuscular Hemoglobin 32.6 pg (25.0-34.0); Mean Corpuscular Hgb Conc 36.9 g/dL (32.0-36.0); Mean Corpuscular Volume 88.5 fL (80.0-100.0); Mean Platelet Volume 10.9 fL (9.4-12.4); Monocytes % (auto) 10.3 %; Neutrophils # (auto) 9.26 K/uL (1.40-6.50); Platelet Count 254 K/uL (130-400); RDW Coefficient of Variation 11.9 % (11.5-14.5); RDW Standard Deviation 38.5 fL (36.4-46.3); White Blood Count 12.67 K/ul (4.8-10.8)
[2024-10-09 08:03] LABS: BUN Creatinine Ratio 11.8 (10-20); Calcium 8.7 mg/dl (8.6-10.3); Creatinine Clr Calc Pharmacy 87.4 ml/min; Potassium 3.6 mmol/L (3.5-5.1)
[2024-10-09 11:44] VITALS: BP 126/64; PULSE 69; RESP 18; TEMP 98.6; O2SAT 98
--- NOTE | 2024-10-09 12:22 | Discharge Summary ---
Discharge Summary Date of Service October 09, 2024 Principal Dx & Hospital Course #1 = Principal Diagnosis (1) Pyelonephritis: Present on admission. Associated with UTI. E. coli isolated. Treated while hospitalized with Rocephin. She will be discharged on Cipro 500 mg twice a day for 2 more weeks. She was also bacteremic with positive blood cultures. (2) Type 1 diabetes mellitus: Last A1c at 6.0% on 12/24/2023. Patient uses an OmniPod 5 insulin pump. ADA diet. Sliding scale coverage as needed (3) Cystitis: Concurrent with pyelonephritis. E. coli isolated. Plan Home today, October 09, on oral ciprofloxacin for 2 more weeks. Admission HPI Per Admitting Provider Liza is a pleasant 48-year-old female with PMH of T1DM, paresthesias, proliferative retinopathy, chronic migraine with aura, and HLD. She presented on 10/06 for new onset of headache, body aches, and chills that began on Thursday 10/04. Patient reports that her symptoms started Wednesday afternoon, and she has been taking NyQuil and ibuprofen intermittently for her pain. She reports that she has not been sleeping well the past 2 nights. She also endorses low, transverse abdominal pain/suprapubic tenderness x 2 days. She rates the pain 5/10 at present, and 9/10 at worst. The pain comes in waves and she characterizes it as an "aching" pain. Not alleviated by different positions. No recent falls/injuries/trauma to the abdomen or pelvis. The pain radiates across both flanks to the lower back. No prior history of kidney stones. She does have a history of UTIs, but they were mainly when she was younger; this is how she found out about her diabetes. Patient uses an OmniPod + CGM for her insulin pump, and she would like to continue using her insulin pump while inpatient. She reports that she did not take her regular morning medicines today; no recent change in medications. She denies smoking and tobacco use. She does endorse occasional social alcohol use. In regard to her penicillin allergy, she reports that she sometimes gets hives when she takes it; no history of anaphylaxis or throat closure. She reports that she tolerated the Rocephin given earlier well. Patient is hypotensive at 105/51 and febrile at 39.1 C at time of admission. ED course: Rocephin 2000 mg IV Acetaminophen 1000 mg IV ROS: Patient endorses fever, chills, night-sweats, dizziness/lightheadedness, terrible body aches, rigors, DOLL, lower back pain, flank pain, and low transverse abdominal pain/suprapubic tenderness. Patient denies N/V/D, changes in urinary/bowel habits, burning with urination, dysuria, saddle anesthesia, or numbness/tingling in the legs. Discharge Exam General-alert and oriented x3, no fever, no chills HEENT-head atraumatic and normocephalic, pupils equal and reactive to light, extraocular muscles intact Neck-no lymphadenopathy or thyromegaly, trachea midline Chest-clear to auscultation. No rales, wheezing or rhonchi Cardiac-regular rate and rhythm, normal S1 and S2 Abdomen-normal bowel sounds, no hepatosplenomegaly Extremities-no cyanosis, clubbing, or edema Neuro-cranial nerves II through XII intact, motor and sensory function within normal limits, strength symmetrical, no focal deficits Psych-normal affect, normal mood Discharge Plan Discharge Items Patient Disposition: Home - Self-Care Reason For Visit: PYELONEPHRITIS; POTENTIAL BACTEREMIA Discharge Diagnosis: UTI with pyelonephritis Activity: Resume your previous activity Non-emergency contact: Primary Care Provider Call non-emergency contact if: your symptoms worsen Follow-up/Referrals: Cezar Rose DO [Primary Care Provider] - Diet: Carb Count or DM1 Addtl Attending Provider Instructions: Take Cipro oral antibiotic for 2 weeks as directed. A prescription has been sent to your pharmacy Pending Studies at Discharge: No Stand-Alone Forms: My [facility] Concuity, Smoking Cessation Medications and DC Order Prescriptions: New ciprofloxacin HCl [Cipro] 500 mg tablet 500 mg PO BID Qty: 28 0RF Continued (DME) Omnipod 5 G6 Intro Kit (Gen 5) Cartridge See Rx Instructions .ROUTE .MEDSUPPLY Qty: 1 0RF Rx Instructions: change pod every 3 days fluticasone propionate 50 mcg/actuation spray,suspension 1 spray intranasal BID Qty: 16 12RF Rx Instructions: administer into each nostril (DME) Omnipod 5 G6 Pods (Gen 5) Cartridge See Rx Instructions .ROUTE .MEDSUPPLY Qty: 30 3RF Rx Instructions: change pods every 3 days fluoxetine 20 mg capsule 20 mg PO QAM Qty: 90 3RF insulin glargine-yfgn [Semglee(insulin glargine-yfgn)] 100 unit/mL solution 24 unit subcut DAILY Qty: 10 2RF Novolog U-100 Insulin aspart 100 unit/mL solution See Rx Instructions .ROUTE .COMPLEX Qty: 50 1RF Rx Instructions: Infuse via insulin pump 50 units per day; (DME) digital therapeutic,JESSICA device Misc See Rx Instructions .Route Qty: 1 0RF Rx Instructions: As directed pravastatin 20 mg tablet 20 mg PO DAILY 90 Days Qty: 90 2RF magnesium oxide 400 mg magnesium tablet 400 mg PO DAILY riboflavin (vitamin B2) 400 mg tablet 400 mg PO DAILY vitamin B complex Tablet 1 tab PO DAILY cholecalciferol (vitamin D3) 25 mcg/drop ( 1,000 unit/drop) drops 25 mcg PO QAM hlbrourmuf-[id number]-[id number] [Fioricet] 50-300-40 mg capsule 1 cap PO DAILY PRN (Reason: pain) Qty: 10 1RF ferrous sulfate 1 tab PO DAILY Glucagon Emergency Kit (human) 1 mg recon soln 1 mg IM DIRECTED PRN (Reason: Hypoglycemia) Patient Comments: 1 mg IM For hypoglycemic emergency PRN; levonorgestrel 20 mcg/24 hours (5 yrs) 52 mg intrauterine device 1 ea IU ONCE (DME) FreeStyle Test Strip See Rx Instructions .ROUTE .MEDSUPPLY Qty: 10 Rx Instructions: Test blood sugars 1 times a day topiramate 100 mg tablet 50 mg PO BID Discharge Orders: Discharge Order (Routine); Ordered 10/09/24 Ordered By: Wily Paige/Other Patient Handouts: Managing Type 1 Diabetes Admission Data Admit Date/Time: 10/06/24 15:12 Attending Provider: Wily Hair Admit Provider: Tobi Welch Primary Care Provider: Cezar Rose Other Providers: Tobi Welch Hospital Stay Data Consultations 10/06/24 14:36 ED Decision to Admit Stat Diagnostic Imagining Performed 10/06/24 13:01 CT abd pelvis IV con only Stat Discharge Instructions Given to Patient (Per Discharging Provider) Take Cipro oral antibiotic for 2 weeks as directed. A prescription has been sent to your pharmacy Total Time Total Time Spent Total Time Spent (In Minutes): 50 minutes Coding Level of Care Code 42600 INP/OBS DISCH >30 MIN Diagnoses Pyelonephritis N12 Type 1 diabetes mellitus E10.9 Cystitis N30.90
--- NOTE | 2024-10-11 14:40 | Coding Query ---
CODING QUERY To promote full compliance with coding requirements relating to patient care, provider participation is requested in all cases of rheostat assembler uncertainty. Please assist us with the question(s) below: DS-Pyelonephritis: Present on admission. Associated with UTI. E. coli isolated. Treated while hospitalized with Rocephin. She will be discharged on Cipro 500 mg twice a day for 2 more weeks. She was also bacteremic with positive blood cultures. Patient is hypotensive at 105/51 and febrile at 39.1 C at time of admission. 10/08 PN-Leukocytosis at 28.59 with a neutrophil predominance; febrile at 39.1 C on arrival Blood culture growing E. coli Urine culture growing E. coli Coding Question(s): Can you please further clarify the patient's bacteremia? [ x ] Bacteremia with Sepsis (systemic infection) [ ] Bacteremia without Sepsis (localized infection) [ ] Other Can you also please further clarify the acuity of the patient's pyelonephritis? [ x ] Acute Pyelonephritis [ ] Chronic Pyelonephritis [ ] Other [ ] Unable to determine Physician's Response(s): Thank you Melissa Garza Principal Diagnosis: "that condition established after study, to be chiefly responsible for occasioning the admission of the patient to the hospital for care." Co-Existing Principal Diagnosis: "when two or more diagnoses equally meet the criteria for principal diagnosis as determined by the circumstances of admission, diagnostic work up, and/or therapy provided, and the Alphabetic Index, Tabular List, or another coding guideline does not provide sequencing direction, any one of the diagnoses may be sequenced first." "When the physician has documented what appears to be a current diagnosis in the body of the record, but has not included the diagnosis in the final diagnostic statement, the physician should be asked whether the diagnosis should be added." (Source Coding Clinic 2 QTR90. p3-4) KENAN
== END 2024-10-09 13:46 | disposition home or self-care (01) | DRG 872 ==
LOC: ED 11:25 → 2S 15:12 → SUATTDRO 15:12 → 2S 15:56